=== PATIENT | female | born 1975 | race Caucasian/White ===

== ENCOUNTER 2018-12-28 09:58 | Emergency (ER) | payer SELFPAY ==
[2018-12-28 10:48] LABS: Basophils % 0.6 % (0-1.3); Hematocrit 32.2 % (36.0-45.0); Lymphocytes % 35.6 % (15.3-44.8); MPV 8.6 fL (7.6-11.3); RBC Red Blood Cell Count 3.88 M/uL (3.86-4.86)
[2018-12-28 11:00] LABS: BUN Blood Urea Nitrogen 13 mg/dL (7-18); Bicarbonate 27 mmol/L (21-32); Glucose Level 139 mg/dL (74-106); Potassium 3.7 mmol/L (3.5-5.1); Sodium Level 141 mmol/L (136-145)
--- NOTE | 2018-12-28 12:53 | ER ---
Nurse's Notes [facility] Name: Telma Sinclair Age: 43 yrs Sex: Female : 1975 Arrival Date: 12/28/2018 Time: 10:01 Bed 5 Private MD: Diagnosis: Abnormal uterine and vaginal bleeding, unspecified Presentation: 12/28 10:27 Presenting complaint: Patient states: Period started Oct 13, 2018, heavy bleeding with jl7 large clots. Transition of care: patient was not received from another setting of care. Onset of symptoms was October 13, 2018. Risk Assessment: Do you want to hurt yourself or someone else? Patient reports no desire to harm self or others. Initial Sepsis Screen: Does the patient meet any 2 criteria? No. Patient's initial sepsis screen is negative. Does the patient have a suspected source of infection? No. Patient's initial sepsis screen is negative. Care prior to arrival: None. 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 - Social history:: Smoking status: Patient/guardian denies using tobacco. - Ebola Screening: : No symptoms or risks identified at this time. Vital Signs: 10:28 BP 146 / 87; Pulse 104; Resp 18 S; Temp 98.7(O); Pulse Ox 100% on R/A; Pain 3/10; jl7 11:49 BP 116 / 70; Pulse 73; Resp 16 S; Pulse Ox 100% on R/A; jl7 ED Course: 10:01 Patient arrived in ED. mr 10:12 Familia Donato NP is PHCP. pm1 10:12 Moy John MD is Attending Physician. pm1 10:13 Ele Mcmillan RN is Primary Nurse. jl7 10:15 Arm band placed on. sv 10:15 Patient has correct armband on for positive identification. sv 10:27 Triage completed. jl7 10:30 Initial lab(s) drawn, by me, sent to lab. Inserted saline lock: 22 gauge in right jl7 forearm, using aseptic technique. Blood collected. 11:49 Initial lab(s) drawn, by me, sent to lab. jl7 12:52 Maddie Larson MD is Referral Physician. pm1 13:42 No provider procedures requiring assistance completed. IV discontinued, intact. jl7 Administered Medications: No medications were administered Outcome: 12:52 Discharge ordered by . pm1 13:42 Discharged to home ambulatory. jl7 13:42 Condition: stable 13:42 Discharge instructions given to patient, Instructed on discharge instructions, follow up and referral plans. Demonstrated understanding of instructions, follow-up care. 13:44 Patient left the ED. jl7 Signatures: Dalia Canela, Shakira Waldron RN, Patrick, FABRIC COATING SUPERVISOR FABRIC COATING SUPERVISOR pm1 Ele Mcmillan RN RN jl7
--- NOTE | 2018-12-28 12:53 | EDPHYS ---
Physician Documentation [facility] Name: Telma Sinclair Age: 43 yrs Sex: Female : 1975 Arrival Date: 12/28/2018 Time: 10:01 Bed 5 Private MD: ED Physician Moy John HPI: 12/28 11:09 This 43 yrs old Female presents to ER via Ambulatory with complaints of pm1 Vaginal Bleeding. 11:09 The patient presents with vaginal bleeding that is heavy, reports using 1 pads or pm1 tampons per day. Onset: The symptoms/episode began/occurred Ongoing for multiple years but worse since October of this year. Has seen Dr. Larson for this last year in Dec/Jan and was recommended hysterectomy. Patient did not want to get a hysterectomy at that time so she was given Depo-Provera monthly shots. She felt that the shots made the bleeding worse so she stopped getting them. Last took a Depo-provera shot in May 2018. Bleeding possibly due to fibroids. Associated signs and symptoms: Pertinent negatives: dysuria, fever, Abdominal pain, shortness of breath, chest pain, dizziness. Severity of symptoms: in the emergency department the symptoms are actually worse. The patient has experienced similar episodes in the past, chronically. 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 - Social history:: Smoking status: Patient/guardian denies using tobacco. - Ebola Screening: : No symptoms or risks identified at this time. ROS: 11:09 Positive for vaginal bleeding, Negative for urinary symptoms, flank pain, burning pm1 with urination, vaginal discharge. 11:09 Constitutional: Negative for fever, chills, and weight loss, Cardiovascular: Negative for chest pain, palpitations, and edema, Respiratory: Negative for shortness of breath, cough, wheezing, and pleuritic chest pain, Abdomen/GI: Negative for abdominal pain, nausea, vomiting, diarrhea, and constipation, Back: Negative for injury and pain, MS/Extremity: Negative for injury and deformity, Skin: Negative for injury, rash, and discoloration, Neuro: Negative for headache, weakness, numbness, tingling, and seizure. 11:09 All other systems are negative. Exam: 11:09 Constitutional: This is a well developed, well nourished patient who is awake, alert, pm1 and in no acute distress. Head/Face: Normocephalic, atraumatic. Eyes: Pupils equal round and reactive to light, extra-ocular motions intact. Lids and lashes normal. Conjunctiva and sclera are non-icteric and not injected. Cornea within normal limits. Periorbital areas with no swelling, redness, or edema. Chest/axilla: Normal chest wall appearance and motion. Nontender with no deformity. No lesions are appreciated. Cardiovascular: Regular rate and rhythm with a normal S1 and S2. No gallops, murmurs, or rubs. Normal PMI, no JVD. No pulse deficits. Respiratory: Lungs have equal breath sounds bilaterally, clear to auscultation and percussion. No rales, rhonchi or wheezes noted. No increased work of breathing, no retractions or nasal flaring. Abdomen/GI: Soft, non-tender, with normal bowel sounds. No distension or tympany. No guarding or rebound. No evidence of tenderness throughout. Back: No spinal tenderness. No costovertebral tenderness. Full range of motion. Skin: Warm, dry with normal turgor. Normal color with no rashes, no lesions, and no evidence of cellulitis. MS/ Extremity: Pulses equal, no cyanosis. Neurovascular intact. Full, normal range of motion. 11:09 Neuro: Orientation: is normal, Motor: is normal, moves all fours. Vital Signs: 10:28 BP 146 / 87; Pulse 104; Resp 18 S; Temp 98.7(O); Pulse Ox 100% on R/A; Pain 3/10; jl7 11:49 BP 116 / 70; Pulse 73; Resp 16 S; Pulse Ox 100% on R/A; jl7 MDM: 10:12 Patient medically screened. pm1 11:08 Data reviewed: vital signs. Data interpreted: Pulse oximetry: on room air is 100 %. pm1 Interpretation: normal. 11:21 ED course: Pending urine sample. Patient does not have any dysuria. Patient reports pm1 unable to provide urine sample at the moment, therefore I will order serum . 12:52 Counseling: I had a detailed discussion with the patient and/or guardian regarding: the pm1 historical points, exam findings, and any diagnostic results supporting the discharge/admit diagnosis, lab results, the need for outpatient follow up, for definitive care, an OB/Gyne specialist, to return to the emergency department if symptoms worsen or persist or if there are any questions or concerns that arise at home. 12/28 10:25 Order name: Basic Metabolic Panel; Complete Time: 11:04 pm1 12/28 10:25 Order name: CBC with Diff; Complete Time: 10:51 pm1 12/28 10:25 Order name: IV Saline Lock; Complete Time: 11:44 pm1 12/28 11:20 Order name: Test, Serum; Complete Time: 12:51 pm1 12/28 10:25 Order name: Labs collected and sent; Complete Time: 11:44 pm1 Administered Medications: No medications were administered Disposition: 16:30 Co-signature as Attending Physician, Moy John MD. rn Disposition: 12/28/18 12:52 Discharged to Home. Impression: Abnormal uterine and vaginal bleeding, unspecified. - Condition is Stable. - Discharge Instructions: Abnormal Uterine Bleeding. - Medication Reconciliation Form, Thank You Letter, Antibiotic Education, Prescription Opioid Use form. - Follow up: Emergency Department; When: As needed; Reason: Worsening of condition. Follow up: Private Physician; When: 2 - 3 days; Reason: Recheck today's complaints, Continuance of care, Re-evaluation by your physician. Follow up: Maddie Larson; When: 2 - 3 days; Reason: Recheck today's complaints, Continuance of care, Re-evaluation by your physician. - Problem is new. - Symptoms have improved. Signatures: Dispatcher [employer] EDMS Moy John MD MD rn Marinas, Patrick, HARESH PROTECTION SPECIALIST pm1 Ele Mcmillan RN RN jl7 Corrections: (The following items were deleted from the chart) 13:44 12:52 12/28/2018 12:52 Discharged to Home. Impression: Abnormal uterine and vaginal jl7 bleeding, unspecified. Condition is Stable. Forms are Medication Reconciliation Form, Thank You Letter, Antibiotic Education, Prescription Opioid Use. Follow up: Emergency Department; When: As needed; Reason: Worsening of condition. Follow up: Private Physician; When: 2 - 3 days; Reason: Recheck today's complaints, Continuance of care, Re-evaluation by your physician. Follow up: Maddie Larson; When: 2 - 3 days; Reason: Recheck today's complaints, Continuance of care, Re-evaluation by your physician. Problem is new. Symptoms have improved. pm1
[2018-12-28 14:02] VITALS: TEMP 98.7; O2SAT 100
[2018-12-28 14:03] VITALS: BP 116/70
== END 2018-12-28 13:44 | disposition home or self-care (01) ==
LOC: ER 09:58
DX: N93.9 Abnormal uterine and vaginal bleeding, unspecified (principal)
CPT/HCPCS: 36415; 80048; 84703; 85025; 99283

== ENCOUNTER 2019-08-19 08:13 | Emergency (ER) | payer SELFPAY ==
[2019-08-19] MEDS ORDERED: ONDANSETRON 4 MG/2 ML VIAL ONE (08:42)
[2019-08-19] MEDS ORDERED: NA CHLORIDE 0.9% 1,000 ML ONE (08:42)
[2019-08-19 08:57] LABS: Absolute Lymphocytes (CBC) 2.3 K/uL (0.7-4.9); Basophils % 0.5 % (0-1.3); Hematocrit 37.7 % (36.0-45.0); Lymphocytes % 35.9 % (15.3-44.8); MPV 8.9 fL (7.6-11.3); RBC Red Blood Cell Count 4.51 M/uL (3.86-4.86)
[2019-08-19 09:09] LABS: Potassium 4.1 mmol/L (3.5-5.1)
--- NOTE | 2019-08-19 09:25 | RAD REPORT ---
EXAM DESCRIPTION: [place] [facility] (2 Views)08/19/2019 9:19 am CLINICAL HISTORY: Cough COMPARISON: None FINDINGS: The lungs appear clear of acute infiltrate. The heart is normal size IMPRESSION: No acute abnormalities displayed
[2019-08-19 09:46] LABS: Urine Blood 1+ (NEG); Urine Glucose NEGATIVE (NEG); Urine Protein 1+ (NEG); Urine pH 5.5 (5.0-7.0)
--- NOTE | 2019-08-19 10:08 | EDPHYS ---
Physician Documentation [facility] Name: Telma Sinclair Age: 44 yrs Sex: Female : 1975 Arrival Date: 08/19/2019 Time: 08:16 Bed 6 Private MD: ED Physician Bhavna Mahoney HPI: 08/18 10:06 This 44 yrs old Female presents to ER via Ambulatory with complaints of kb Fever, Weakness. 10:07 The patient or guardian reports cough, that is intermittent, described as mild, with no kb sputum, flu symptoms, low-grade fever, myalgias. Onset: The symptoms/episode began/occurred 1 week(s) ago. Severity of symptoms: At their worst the symptoms were moderate, in the emergency department the symptoms are unchanged. Modifying factors: The symptoms are alleviated by nothing, the symptoms are aggravated by nothing. Associated signs and symptoms: Pertinent positives: fever, nausea, sore throat, vomiting, Pertinent negatives: chest pain, diarrhea, ear ache, rhinorrhea. The patient has not experienced similar symptoms in the past. The patient has not recently seen a physician. Pt reports low grade fever, n/v, decreased appetite, dry cough and scratchy throat that started 7 days ago. Denies sick contacts or travel. 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 - Social history:: Smoking status: Patient reports the use of cigarette tobacco products, 4 cigarettes/day. ROS: 10:06 Neck: Negative for injury, pain, and swelling, Cardiovascular: Negative for chest pain, kb palpitations, and edema, Back: Negative for injury and pain, MS/Extremity: Negative for injury and deformity, Skin: Negative for injury, rash, and discoloration, Neuro: Negative for headache, weakness, numbness, tingling, and seizure. 10:06 Constitutional: Positive for body aches, chills, fatigue, fever, malaise. 10:06 ENT: Positive for sore throat. 10:06 Respiratory: Positive for cough, Negative for dyspnea on exertion, hemoptysis, orthopnea, pleurisy, shortness of breath, sputum production, wheezing. 10:06 Abdomen/GI: Positive for nausea and vomiting, Negative for abdominal pain, diarrhea, constipation. Exam: 10:07 Constitutional: This is a well developed, well nourished patient who is awake, alert, kb and in no acute distress. Head/Face: Normocephalic, atraumatic. ENT: Nares patent. No nasal discharge, no septal abnormalities noted. Tympanic membranes are normal and external auditory canals are clear. Oropharynx with no redness, swelling, or masses, exudates, or evidence of obstruction, uvula midline. Mucous membranes moist. Neck: Trachea midline, no thyromegaly or masses palpated, and no cervical lymphadenopathy. Supple, full range of motion without nuchal rigidity, or vertebral point tenderness. No Meningismus. Chest/axilla: Normal chest wall appearance and motion. Nontender with no deformity. No lesions are appreciated. Cardiovascular: Regular rate and rhythm with a normal S1 and S2. No gallops, murmurs, or rubs. Normal PMI, no JVD. No pulse deficits. Respiratory: Lungs have equal breath sounds bilaterally, clear to auscultation and percussion. No rales, rhonchi or wheezes noted. No increased work of breathing, no retractions or nasal flaring. Abdomen/GI: Soft, non-tender, with normal bowel sounds. No distension or tympany. No guarding or rebound. No evidence of tenderness throughout. Skin: Warm, dry with normal turgor. Normal color with no rashes, no lesions, and no evidence of cellulitis. MS/ Extremity: Pulses equal, no cyanosis. Neurovascular intact. Full, normal range of motion. Neuro: Awake and alert, GCS 15, oriented to person, place, time, and situation. Cranial nerves II-XII grossly intact. Motor strength 5/5 in all extremities. Sensory grossly intact. Cerebellar exam normal. Normal gait. Vital Signs: 08:28 BP 112 / 72; Pulse 79; Resp 17; Temp 98; Pulse Ox 98% ; Weight 83.91 kg; Height 5 ft. 2 jl7 in. (157.48 cm); Pain 0/10; 08:28 Body Mass Index 33.84 (83.91 kg, 157.48 cm) jl7 MDM: 08:17 Patient medically screened. kb 10:05 Data reviewed: vital signs, nurses notes. Data interpreted: Pulse oximetry: on room air kb is 98 %. Interpretation: normal. Counseling: I had a detailed discussion with the patient and/or guardian regarding: the historical points, exam findings, and any diagnostic results supporting the discharge/admit diagnosis, lab results, radiology results, the need for outpatient follow up, a family practitioner, to return to the emergency department if symptoms worsen or persist or if there are any questions or concerns that arise at home. 08/18 08:27 Order name: Flu; Complete Time: 09:31 kb 08/18 08:27 Order name: Strep; Complete Time: 09:31 kb 08/18 08:27 Order name: CBC with Diff; Complete Time: 08:59 kb 08/18 08:27 Order name: Basic Metabolic Panel; Complete Time: 09:31 kb 08/18 08:27 Order name: [place] Screen Profile; Complete Time: 10:03 kb 08/18 08:44 Order name: Urine Dipstick--Ancillary (enter results); Complete Time: 10:03 eb 08/18 08:21 Order name: Urine Dipstick-Ancillary (obtain specimen); Complete Time: 08:48 kb 08/18 08:21 Order name: Chest Pa And Lat (2 Views) XRAY; Complete Time: 09:31 kb 08/18 08:27 Order name: IV Start; Complete Time: 08:48 kb 08/18 08:44 Order name: Urine --Ancillary (enter results); Complete Time: 10:03 eb 08/18 09:16 Order name: Throat Culture [facility] 08/18 10:05 Order name: COVID-19 kb Administered Medications: 08:44 Drug: NS 0.9% 1000 ml Route: IV; Rate: 1000 ml; Site: right antecubital; jl7 08:44 Drug: Zofran (Ondansetron) 4 mg Route: IVP; Site: right antecubital; jl7 Disposition: 18:50 Co-signature as Attending Physician, Bhavna Mahoney MD. ma2 Disposition: 08/19/19 10:08 Discharged to Home. Impression: Acute upper respiratory infection, unspecified. - Condition is Stable. - Discharge Instructions: Upper Respiratory Infection, Adult, [id number], Viral Respiratory Infection, [id number]. - Medication Reconciliation Form, Thank You Letter, Antibiotic Education, Prescription Opioid Use form. - Follow up: Emergency Department; When: As needed; Reason: Worsening of condition. Follow up: Private Physician; When: 2 - 3 days; Reason: Recheck today's complaints, Continuance of care, Re-evaluation by your physician. Signatures: Dispatcher [employer] EDIN Suzanne Ballard, SHUTTLE ROUTE VEHICLE OPERATOR-C SHUTTLE ROUTE VEHICLE OPERATOR-Sofy Orr, RN RN dm5 Ele Mcmillan RN RN jl7 Bhavna Mahoney MD MD ma2 Corrections: (The following items were deleted from the chart) 10:48 10:08 08/19/2019 10:08 Discharged to Home. Impression: Acute upper respiratory dm5 infection, unspecified. Condition is Stable. Forms are Medication Reconciliation Form, Thank You Letter, Antibiotic Education, Prescription Opioid Use. Follow up: Emergency Department; When: As needed; Reason: Worsening of condition. Follow up: Private Physician; When: 2 - 3 days; Reason: Recheck today's complaints, Continuance of care, Re-evaluation by your physician. kb
--- NOTE | 2019-08-19 10:08 | ER ---
Nurse's Notes [facility] Name: Telma Sinclair Age: 44 yrs Sex: Female : 1975 Arrival Date: 08/19/2019 Time: 08:16 Bed 6 Private MD: Diagnosis: Acute upper respiratory infection, unspecified Presentation: 08/18 08:28 Chief complaint: Patient states: Fever x 1 week, temp up to 100.7, dry cough started jl7 yesterday. Coronavirus screen: Proceed with normal triage. Patient reports a cough. Patient denies shortness of breath or difficulty breathing. Patient reports a measured and/or subjective temperature greater than 100.4F. Patient denies travel on a cruise ship or to a country the [facility] currently lists as an affected area. Patient denies contact with known and/or suspected case of COVID-19. Ebola Screen: No symptoms or risks identified at this time. Initial Sepsis Screen: Does the patient meet any 2 criteria? No. Patient's initial sepsis screen is negative. Does the patient have a suspected source of infection? No. Patient's initial sepsis screen is negative. Risk Assessment: Do you want to hurt yourself or someone else? Patient reports no desire to harm self or others. Onset of symptoms was August 12, 2019. Care prior to arrival: None. 08:28 Method Of Arrival: Ambulatory 7 08:28 Acuity: ELEAZAR 3 jl7 Triage Assessment: 08:28 General: Appears in no apparent distress. uncomfortable, Behavior is calm, cooperative, jl7 appropriate for age. Pain: Denies pain. EENT: Throat is clear. Neuro: Level of Consciousness is awake, alert, obeys commands, Oriented to person, place, time, situation. Cardiovascular: Patient's skin is warm and dry. Respiratory: Airway is patent Respiratory effort is even, unlabored, Respiratory pattern is regular, symmetrical. GI: Reports nausea, vomiting. : No signs and/or symptoms were reported regarding the genitourinary system. Derm: Skin is pink, warm \T\ dry. 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 - Social history:: Smoking status: Patient reports the use of cigarette tobacco products, 4 cigarettes/day. Assessment: 11:51 Reassessment: JUANCARLOS# [id number]. iw Vital Signs: 08:28 BP 112 / 72; Pulse 79; Resp 17; Temp 98; Pulse Ox 98% ; Weight 83.91 kg; Height 5 ft. 2 jl7 in. (157.48 cm); Pain 0/10; 08:28 Body Mass Index 33.84 (83.91 kg, 157.48 cm) jl7 ED Course: 08:16 Patient arrived in ED. as 08:16 Suz[facility] Ballard [facility]C [facility] kb 08:16 Bhavna Mahoney MD is Attending Physician. kb 08:22 Ele Mcmillan RN is Primary Nurse. jl7 08:24 Arm band placed on right wrist. jl7 08:29 Triage completed. jl7 08:47 Initial lab(s) drawn, by sc, sent to lab. Urine collected: clean catch specimen, clear, jl7 Flu and/or RSV swab sent to lab. Strep swab sent to lab. Inserted saline lock: 20 gauge in right antecubital area, using aseptic technique. Blood collected. 09:19 Chest Pa And Lat (2 Views) XRAY In Process Unspecified. EDMS 10:48 IV discontinued, intact, bleeding controlled, No redness/swelling at site. Pressure dm5 dressing applied. Administered Medications: 08:44 Drug: NS 0.9% 1000 ml Route: IV; Rate: 1000 ml; Site: right antecubital; jl7 08:44 Drug: Zofran (Ondansetron) 4 mg Route: IVP; Site: right antecubital; jl7 Outcome: 10:08 Discharge ordered by . kb 10:48 Discharged to home ambulatory. dm5 10:48 Condition: good 10:48 Discharge instructions given to patient, family, Instructed on discharge instructions, follow up and referral plans. Demonstrated understanding of instructions, follow-up care. 10:48 Patient left the ED. dm5 Addendum: 08/23/2019 08:52 Addendum: Other pt notified of negative COVID-19 swab results. Pt advised to remain in d m5 isolation until fever free for 72 hours without medication or at least 10 says from the time symptoms started and to return to the ED if symptoms worsen. Signatures: Dispatcher [employer] Suzanne Hernandez, [employer]-Sofy Orr, RN RN dm5 Keara Langley Irene, RN RN iw Ele Mcmillan RN RN jl7
[2019-08-19 11:08] VITALS: BP 112/72; TEMP 98; O2SAT 98
== END 2019-08-19 10:48 | disposition home or self-care (01) ==
LOC: ER 08:13
DX: J06.9 Acute upper respiratory infection, unspecified (principal); Z20.828 Contact with and (suspected) exposure to other viral communicable diseases; F17.210 Nicotine dependence, cigarettes, uncomplicated
CPT/HCPCS: 36415; 71046; 80048; 81003; 81025; 85025; 86308; 87070; 87081; 87804; 96374; 99284; J2405; J7030; U0001

== ENCOUNTER 2020-03-07 09:17 | Emergency (ER) | payer SELFPAY ==
--- NOTE | 2020-03-07 12:25 | EDPHYS ---
Physician Documentation [facility] Name: Telma Sinclair Age: 44 yrs Sex: Female : 1975 Arrival Date: 03/07/2020 Time: 09:19 Bed 5 Private MD: ED Physician El Chin HPI: 03/07 09:56 This 44 yrs old Female presents to ER via Ambulatory with complaints of kdr Cough, Runny Nose, Chest Pain. 09:56 The patient or guardian reports cough, that is intermittent, described as mild, with no kdr sputum, difficulty breathing, flu symptoms, arthralgias, myalgias, no appetite. Onset: The symptoms/episode began/occurred last night. Severity of symptoms: At their worst the symptoms were mild, in the emergency department the symptoms are unchanged. Modifying factors: The symptoms are alleviated by nothing, the symptoms are aggravated by nothing. Associated signs and symptoms: Pertinent positives: chest pain, with cough, with breathing, nausea, sore throat, Pertinent negatives: fever, rhinorrhea. The patient has not experienced similar symptoms in the past. The patient has not recently seen a physician. Historical: - Allergies: 09:46 No Known Allergies; bp - Home Meds: 09:46 None [Active]; bp - PMHx: 09:46 uterine fibroids; bp - PSHx: 09:46 None; bp - Immunization history:: Adult Immunizations up to date. - Social history:: Smoking status: Patient reports the use of cigarette tobacco products, unknown amount. ROS: 09:56 Constitutional: Negative for fever, chills, and weight loss, Eyes: Negative for injury, kdr pain, redness, and discharge, Neck: Negative for injury, pain, and swelling, Abdomen/GI: Negative for abdominal pain, nausea, vomiting, diarrhea, and constipation, Back: Negative for injury and pain, : Negative for injury, bleeding, discharge, and swelling, MS/Extremity: Negative for injury and deformity, Skin: Negative for injury, rash, and discoloration, Neuro: Negative for headache, weakness, numbness, tingling, and seizure activity. Psych: Negative for depression, anxiety, suicide ideation, homicidal ideation, and hallucinations, Allergy/Immunology: Negative for hives, rash, and allergies, Endocrine: Negative for neck swelling, polydipsia, polyuria, polyphagia, and marked weight changes, Hematologic/Lymphatic: Negative for swollen nodes, abnormal bleeding, and unusual bruising. 09:56 Cardiovascular: Positive for chest pain, with cough, Negative for edema, orthopnea, palpitations, paroxysmal nocturnal dyspnea. 09:56 Respiratory: Positive for cough, "sounds productive", Negative for dyspnea on exertion, hemoptysis, orthopnea, pleurisy, shortness of breath, sputum production, wheezing. Exam: 09:56 Constitutional: This is a well developed, well nourished patient who is awake, alert, kdr and in no acute distress. Head/Face: Normocephalic, atraumatic. Eyes: Pupils equal round and reactive to light, extra-ocular motions intact. Lids and lashes normal. Conjunctiva and sclera are non-icteric and not injected. Cornea within normal limits. Periorbital areas with no swelling, redness, or edema. Neck: Trachea midline, no thyromegaly or masses palpated, and no cervical lymphadenopathy. Supple, full range of motion without nuchal rigidity, or vertebral point tenderness. No Meningismus. Chest/axilla: Normal chest wall appearance and motion. Nontender with no deformity. No lesions are appreciated. Cardiovascular: Regular rate and rhythm with a normal S1 and S2. No gallops, murmurs, or rubs. Normal PMI, no JVD. No pulse deficits. Respiratory: Lungs have equal breath sounds bilaterally, clear to auscultation and percussion. No rales, rhonchi or wheezes noted. No increased work of breathing, no retractions or nasal flaring. Abdomen/GI: Soft, non-tender, with normal bowel sounds. No distension or tympany. No guarding or rebound. No evidence of tenderness throughout. Back: No spinal tenderness. No costovertebral tenderness. Full range of motion. Skin: Warm, dry with normal turgor. Normal color with no rashes, no lesions, and no evidence of cellulitis. MS/ Extremity: Pulses equal, no cyanosis. Neurovascular intact. Full, normal range of motion. Neuro: Awake and alert, GCS 15, oriented to person, place, time, and situation. Cranial nerves II-XII grossly intact. Motor strength 5/5 in all extremities. Sensory grossly intact. Cerebellar exam normal. Normal gait. Psych: Awake, alert, with orientation to person, place and time. Behavior, mood, and affect are within normal limits. Vital Signs: 09:26 BP 133 / 86; Pulse 109; Resp 20; Temp 98.1(TE); Pulse Ox 98% on R/A; Weight 83.01 kg; em1 Height 5 ft. 2 in. (157.48 cm); Pain 6/10; 10:41 BP 97 / 86; Pulse 82; Resp 20; Pulse Ox 98% ; bp 11:30 BP 124 / 56; Pulse 78; Resp 18; Pulse Ox 98% ; bp 12:46 BP 118 / 89; Pulse 78; Resp 20; Temp 98; Pulse Ox 99% ; bp 09:26 Body Mass Index 33.47 (83.01 kg, 157.48 cm) em1 MDM: 09:56 Data reviewed: vital signs, nurses notes, lab test result(s), radiologic studies. kdr Counseling: I had a detailed discussion with the patient and/or guardian regarding: the historical points, exam findings, and any diagnostic results supporting the discharge/admit diagnosis, lab results, the need for outpatient follow up. 12:25 Patient medically screened. kdr 12:43 Special discussion: I discussed with the patient/guardian in detail that at this point kdr there is no indication for admission to the hospital. It is understood, however, that if the symptoms persist or worsen the patient needs to return immediately for re-evaluation. 03/07 09:52 Order name: COVID-19 kdr 03/07 09:52 Order name: Strep; Complete Time: 12:24 kdr 03/07 10:07 Order name: Flu kdr 03/07 12:24 Order name: Throat Culture EDMS Administered Medications: No medications were administered Disposition: 03/07/20 12:25 Discharged to Home. Impression: Cough, Acute upper respiratory infection, unspecified, Viral infection, unspecified. - Condition is Stable. - Discharge Instructions: Upper Respiratory Infection, Adult, [id number], Cough, Adult, [id number]. - Prescriptions for Promethazine VC 6.25- 5 mg/5 mL Oral syrup - take 5 milliliter by ORAL route every 4 hours as needed; 200 milliliter. Tessalon Perles 100 mg Oral Capsule - take 1 capsule by ORAL route every 8 hours As needed; 15 capsule. prednisone 10 mg Oral tablet - take 1 tablet by ORAL route 2 times per day; 10 tablet. Prednisone 20 mg Oral Tablet - take 1 tablet by ORAL route 2 times per day for 5 days; 10 tablet. - Medication Reconciliation Form, Thank You Letter form. - Follow up: Private Physician; When: 2 - 3 days; Reason: If symptoms return, Further diagnostic work-up, Recheck today's complaints, Continuance of care, Re-evaluation by your physician. - Problem is new. - Symptoms are unchanged. Signatures: Dispatcher [employer] EDSC El Chin MD MD kdr Peltier, Brian, RN RN bp Corrections: (The following items were deleted from the chart) 12:48 12:25 03/07/2020 12:25 Discharged to Home. Impression: Cough; Acute upper respiratory bp infection, unspecified; Viral infection, unspecified. Condition is Stable. Forms are Medication Reconciliation Form, Thank You Letter, Antibiotic Education, Prescription Opioid Use. Follow up: Private Physician; When: 2 - 3 days; Reason: If symptoms return, Further diagnostic work-up, Recheck today's complaints, Continuance of care, Re-evaluation by your physician. Problem is new. Symptoms are unchanged. kdr
--- NOTE | 2020-03-07 12:25 | ER ---
Nurse's Notes [facility] Name: Telma Sinclair Age: 44 yrs Sex: Female : 1975 Arrival Date: 03/07/2020 Time: 09:19 Bed 5 Private MD: Diagnosis: Cough;Acute upper respiratory infection, unspecified;Viral infection, unspecified Presentation: 03/07 09:30 Chief complaint: Patient states: COUGH, COLD, CHEST CONGESTION, HEADACHE; START Y/D bp MORNING. Coronavirus screen: chills, congestion, cough unrelated to allergies, fatigue, headache, muscle pain, Client presents with at least one sign or symptom that may indicate coronavirus-19. Standard/surgical mask placed on the client. Provider contacted for isolation considerations. Ebola Screen: No symptoms or risks identified at this time. Initial Sepsis Screen: Does the patient meet any 2 criteria? HR > 90 bpm. No. Patient's initial sepsis screen is negative. Does the patient have a suspected source of infection? Yes: Productive cough/pneumonia. Risk Assessment: Do you want to hurt yourself or someone else? Patient reports no desire to harm self or others. Onset of symptoms was March 06, 2020 at 06:00. 09:30 Method Of Arrival: Ambulatory bp 09:30 Acuity: ELEAZAR 3 bp Triage Assessment: 09:46 General: Appears in no apparent distress. uncomfortable, ill, Behavior is calm, bp cooperative, appropriate for age. Pain: Complains of pain in GENERALIZED ACHE. EENT: Reports nasal congestion. Neuro: No deficits noted. Cardiovascular: Rhythm is sinus rhythm. Respiratory: Reports cough that is. GI: No signs and/or symptoms were reported involving the gastrointestinal system. : No signs and/or symptoms were reported regarding the genitourinary system. Derm: No deficits noted. Musculoskeletal: No deficits noted. Historical: - Allergies: 09:46 No Known Allergies; bp - Home Meds: 09:46 None [Active]; bp - PMHx: :46 uterine fibroids; bp - PSHx: 09:46 None; bp - Immunization history:: Adult Immunizations up to date. - Social history:: Smoking status: Patient reports the use of cigarette tobacco products, unknown amount. Screenin:30 Abuse screen: Denies threats or abuse. Denies injuries from another. Nutritional bp screening: No deficits noted. Tuberculosis screening: No symptoms or risk factors identified. Fall Risk None identified. Assessment: 09:30 General: SEE TRIAGE NOTE. bp 11:30 Reassessment: No changes from previously documented assessment. Patient and/or family bp updated on plan of care and expected duration. Pain level reassessed. Patient is alert, oriented x 3, equal unlabored respirations, skin warm/dry/pink. RESULTS PENDING FOR DISPO. 12:46 Reassessment: PT D/C HOME AMBULATORY, DX WITH ACUTE URI. bp Vital Signs: 09:26 BP 133 / 86; Pulse 109; Resp 20; Temp 98.1(TE); Pulse Ox 98% on R/A; Weight 83.01 kg; em1 Height 5 ft. 2 in. (157.48 cm); Pain 6/10; 10:41 BP 97 / 86; Pulse 82; Resp 20; Pulse Ox 98% ; bp 11:30 BP 124 / 56; Pulse 78; Resp 18; Pulse Ox 98% ; bp 12:46 BP 118 / 89; Pulse 78; Resp 20; Temp 98; Pulse Ox 99% ; bp 09:26 Body Mass Index 33.47 (83.01 kg, 157.48 cm) em1 ED Course: 09:19 Patient arrived in ED. ag5 09:28 Patient has correct armband on for positive identification. Placed in gown. Bed in low mh5 position. Call light in reach. Side rails up X 1. Warm blanket given. director of government sales on. Pulse ox on. NIBP on. 09:32 Jerman Beauchamp, YUKI is Primary Nurse. bp 09:36 El Chin MD is Attending Physician. kdr 09:45 Triage completed. bp 10:15 Flu Sent. bp 10:15 Strep Sent. bp 10:15 COVID-19 Sent. bp 12:47 No provider procedures requiring assistance completed. Patient did not have IV access bp during this emergency room visit. Patient maintains SpO2 saturation greater than 95% on room air. Administered Medications: No medications were administered Outcome: 12:25 Discharge ordered by . kdr 12:47 Discharged to home ambulatory. bp 12:47 Condition: stable 12:47 Discharge instructions given to patient, Instructed on discharge instructions, follow up and referral plans. medication usage, Demonstrated understanding of instructions, follow-up care, medications, Prescriptions given X 4. 12:48 Patient left the ED. bp Addendum: 03/08/2020 17:18 Addendum: COVID-19 Result: Negative result given to RN to notify pt. Notified pt of i w negative COVID 19 swab results. Pt advised that even with a negative test result they should remain in isolation until symptom free for 3 days without medication. Pt also advised to return to the ED for worsening symptoms. Signatures: El Chin MD MD [facility] Shea Wilhelm RN RN Luis Langley Tabitha Trejo [facility] Jerman Beauchamp RN RN bp Gaskin, Ajare 5
[2020-03-07 12:56] VITALS: BP 118/89; TEMP 98; O2SAT 99
== END 2020-03-07 12:48 | disposition home or self-care (01) ==
LOC: ER 09:17
DX: J06.9 Acute upper respiratory infection, unspecified (principal); B34.9 Viral infection, unspecified; Z20.828 Contact with and (suspected) exposure to other viral communicable diseases; Z72.0 Tobacco use
CPT/HCPCS: 87070; 87081; 87804; 99284; U0002

== ENCOUNTER 2020-05-12 09:44 | Emergency (ER) | payer SELFPAY ==
--- NOTE | 2020-05-12 11:14 | ER ---
Nurse's Notes [facility] Name: Telma Sinclair Age: 45 yrs Sex: Female : 1975 Arrival Date: 05/12/2020 Time: 09:46 Bed 6 Private MD: Diagnosis: Acute pharyngitis;Otalgia, right ear Presentation: 05/12 09:56 Chief complaint: Patient states: "I am getting over COVID, got my first negative test jd3 here recently/end of April, but here since about Thursday I have been having some throat and ear pain.". Coronavirus screen: At this time, the client does not indicate any symptoms associated with coronavirus-19. Ebola Screen: Patient negative for fever greater than or equal to 101.5 degrees Fahrenheit, and additional compatible Ebola Virus Disease symptoms. Initial Sepsis Screen: Does the patient meet any 2 criteria? No. Patient's initial sepsis screen is negative. Does the patient have a suspected source of infection? No. Patient's initial sepsis screen is negative. Risk Assessment: Do you want to hurt yourself or someone else? Patient reports no desire to harm self or others. Onset of symptoms was May 08, 2020. 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 - Social history:: Smoking status: Patient denies any tobacco usage or history of. Screenin:01 Abuse screen: Denies threats or abuse. Nutritional screening: No deficits noted. jd3 Tuberculosis screening: No symptoms or risk factors identified. Fall Risk Ambulatory Aid- None/Bed Rest/Nurse Assist (0 pts). Gait- Normal/Bed Rest/Wheelchair (0 pts) Mental Status- Oriented to own ability (0 pts). Total Isaac Fall Scale indicates No Risk (0-24 pts). Assessment: 09:59 General: Appears in no apparent distress. comfortable, Behavior is calm, cooperative, jd3 appropriate for age. Pain: Complains of pain in right ear and throat Quality of pain is described as aching. Neuro: Level of Consciousness is awake, alert, obeys commands, Oriented to person, place, time, situation. Cardiovascular: Denies chest pain, Capillary refill < 3 seconds Patient's skin is warm and dry. Respiratory: Airway is patent Respiratory effort is even, unlabored, Respiratory pattern is regular, symmetrical, Denies cough, shortness of breath. GI: No signs and/or symptoms were reported involving the gastrointestinal system. : No signs and/or symptoms were reported regarding the genitourinary system. EENT: Tympanic membrane reddened on right ear Throat is reddened. Derm: Skin is intact, Skin is dry, Skin is normal, Skin temperature is warm. Musculoskeletal: Circulation, motion, and sensation intact. Range of motion: intact in all extremities. 10:46 Reassessment: No changes from previously documented assessment. Patient and/or family bp updated on plan of care and expected duration. Pain level reassessed. Patient is alert, oriented x 3, equal unlabored respirations, skin warm/dry/pink. ALL CURRENT ORDERS COMPLETED. 11:19 Reassessment: Patient appears in no apparent distress at this time. Patient and/or jd3 family updated on plan of care and expected duration. Pain level reassessed. Patient is alert, oriented x 3, equal unlabored respirations, skin warm/dry/pink. reported understanding of discharge instructions, even and steady gait upon discharge. Vital Signs: 09:58 BP 115 / 68; Pulse 83; Resp 16 S; Temp 98.9(O); Pulse Ox 98% on R/A; Weight 81.65 kg jd3 (R); Height 5 ft. 2 in. (157.48 cm) (R); Pain 8/10; 10:46 BP 119 / 107; Pulse 64; Resp 16; Temp 98.9; Pulse Ox 98% ; bp 09:58 Body Mass Index 32.92 (81.65 kg, 157.48 cm) jd3 ED Course: 09:46 Patient arrived in ED. as 09:48 Familia Donato NP is PHCP. pm1 09:48 Abhishek Petty MD is Attending Physician. pm1 09:49 Jerman Beauchamp, YUKI is Primary Nurse. bp 09:58 Triage completed. jd3 09:59 Arm band placed on. jd3 10:01 Patient has correct armband on for positive identification. Bed in low position. Call jronal light in reach. Side rails up X 1. Pulse ox on. NIBP on. 10:05 Primary Nurse role handed off by Jerman Beauchamp, RN jd3 10:05 Taurus Feliz, RN is Primary Nurse. jd3 11:19 No provider procedures requiring assistance completed. Patient did not have IV access jd3 during this emergency room visit. Administered Medications: No medications were administered Outcome: 11:13 Discharge ordered by MD. pm1 11:19 Discharged to home ambulatory. jd3 11:19 Condition: stable 11:19 Discharge instructions given to patient, Instructed on discharge instructions, follow up and referral plans. medication usage, Demonstrated understanding of instructions, follow-up care, medications, Prescriptions given X 1. 11:20 Patient left the ED. jd3 Signatures: Keara Langley Patrick, ELECTRICAL TROUBLESHOOTER ELECTRICAL TROUBLESHOOTER pm1 Taurus Feliz, RN RN j Jerman Beauchamp, YUKI RN bp Corrections: (The following items were deleted from the chart) 10:47 10:46 Reassessment: ALL CURRENT ORDERS COMPLETED bp bp
--- NOTE | 2020-05-12 11:14 | EDPHYS ---
Physician Documentation [facility] Name: Telma Sinclair Age: 45 yrs Sex: Female : 1975 Arrival Date: 05/12/2020 Time: 09:46 Bed 6 Private MD: MARGIE Physician Abhishek Petty HPI: 05/12 10:06 This 45 yrs old Female presents to ER via Ambulatory with complaints of Sore pm1 Throat, Ear Pain. 10:06 The patient presents with sore throat. The patient describes throat pain as raw, pm1 scratchy. Onset: The symptoms/episode began/occurred 3 day(s) ago. Severity of symptoms: in the emergency department the symptoms are unchanged. Modifying factors: the symptoms are aggravated by swallowing, Patient's oral intake status: good. Associated signs and symptoms: Pertinent positives: earache, Pertinent negatives chest pain, cough, fever, nausea, shortness of breath, vomiting. Patient diagnosed with covin in April. Patient has had 2 negative tests since then, she just received her second negative covid test today. 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 - Social history:: Smoking status: Patient denies any tobacco usage or history of. ROS: 10:06 Constitutional: Negative for fever, chills, and weight loss. pm1 10:06 Cardiovascular: Negative for chest pain, palpitations, and edema, Respiratory: Negative for shortness of breath, cough, wheezing, and pleuritic chest pain, Abdomen/GI: Negative for abdominal pain, nausea, vomiting, diarrhea, and constipation, MS/Extremity: Negative for injury and deformity, Skin: Negative for injury, rash, and discoloration. 10:06 Neuro: Negative for headache, weakness, numbness, tingling, and seizure. 10:06 ENT: Positive for ear pain, sore throat, Negative for drainage from ear(s), hearing loss, difficulty swallowing, difficulty handling secretions, hoarseness. Exam: 10:06 Constitutional: This is a well developed, well nourished patient who is awake, alert, pm1 and in no acute distress. Head/Face: Normocephalic, atraumatic. 10:06 Skin: Warm, dry with normal turgor. Normal color with no rashes, no lesions, and no evidence of cellulitis. MS/ Extremity: Pulses equal, no cyanosis. Neurovascular intact. Full, normal range of motion. 10:06 ENT: External ear(s): are unremarkable, Ear canal(s): are normal, TM's: bulging, on the right, Examination of the other ear shows no obvious abnormality, Posterior pharynx: Airway: no evidence of obstruction, Tonsils: bilaterally enlarged, with erythema, no exudate, no ulcerations, peritonsillar mass, is not appreciated, pooling of secretions, is not appreciated. 10:06 Neck: ROM/movement: is normal, is supple, Lymph nodes: lymphadenopathy is appreciated, anterior cervical nodes. 10:06 Cardiovascular: Exam negative for acute changes, Rate: normal, Rhythm: regular, Pulses: no pulse deficits are appreciated. 10:06 Respiratory: Exam negative for acute changes, respiratory distress, shortness of breath. 10:06 Neuro: Exam negative for acute changes, Orientation: is normal, Mentation: is normal, Motor: is normal, moves all fours. Vital Signs: 09:58 BP 115 / 68; Pulse 83; Resp 16 S; Temp 98.9(O); Pulse Ox 98% on R/A; Weight 81.65 kg jd3 (R); Height 5 ft. 2 in. (157.48 cm) (R); Pain 8/10; 10:46 BP 119 / 107; Pulse 64; Resp 16; Temp 98.9; Pulse Ox 98% ; bp 09:58 Body Mass Index 32.92 (81.65 kg, 157.48 cm) jd3 MDM: 09:55 Patient medically screened. jeffrey 10:06 ED course: Patient does not want covid testing because she has had two negative covid pm1 tests after having symptoms and testing positive on April 19. Patient just got a negative covid test result. 11:12 Data reviewed: vital signs. Data interpreted: Pulse oximetry: on room air is 98 %. pm1 Interpretation: normal. Counseling: I had a detailed discussion with the patient and/or guardian regarding: the historical points, exam findings, and any diagnostic results supporting the discharge/admit diagnosis, lab results, the need for outpatient follow up, to return to the emergency department if symptoms worsen or persist or if there are any questions or concerns that arise at home. 05/12 10:06 Order name: Flu pm1 05/12 10:06 Order name: Strep pm1 05/12 10:28 Order name: Group A Streptococcus Rapid Sc; Complete Time: 11:12 EDMS 05/12 10:53 Order name: Influenza Screen (A ; Complete Time: 11:12 EDMS Administered Medications: No medications were administered Disposition: 05/13 09:04 Co-signature as Attending Physician, Abhishek Petty MD I agree with the assessment and jeffrey plan of care. Disposition: 05/12/20 11:13 Discharged to Home. Impression: Acute pharyngitis, Otalgia, right ear. - Condition is Stable. - Discharge Instructions: Earache, Adult, Pharyngitis. - Prescriptions for Amoxicillin 500 mg Oral Capsule - take 1 capsule by ORAL route every 8 hours for 10 days; 30 tablet. - Medication Reconciliation Form, Thank You Letter, Antibiotic Education, Prescription Opioid Use form. - Follow up: Emergency Department; When: As needed; Reason: Worsening of condition. Follow up: Private Physician; When: 2 - 3 days; Reason: Recheck today's complaints, Continuance of care, Re-evaluation by your physician. - Problem is new. - Symptoms have improved. Signatures: Dispatcher [employer] Abhishek Mann MD MD cha Marinas, Patrick, DENTAL BILLER DENTAL BILLER pm1 Taurus Feliz RN RN jd3 Corrections: (The following items were deleted from the chart) 05/12 11:20 11:13 05/12/2020 11:13 Discharged to Home. Impression: Acute pharyngitis; Otalgia, jd3 right ear. Condition is Stable. Forms are Medication Reconciliation Form, Thank You Letter, Antibiotic Education, Prescription Opioid Use. Follow up: Emergency Department; When: As needed; Reason: Worsening of condition. Follow up: Private Physician; When: 2 - 3 days; Reason: Recheck today's complaints, Continuance of care, Re-evaluation by your physician. Problem is new. Symptoms have improved. pm1
[2020-05-12 11:33] VITALS: TEMP 98.9; O2SAT 98
[2020-05-12 11:34] VITALS: BP 119/107
== END 2020-05-12 11:20 | disposition home or self-care (01) ==
LOC: ER 09:44
DX: H92.01 Otalgia, right ear (principal)
CPT/HCPCS: 87070; 87081; 87804; 99283

== ENCOUNTER 2021-01-25 07:31 | Inpatient (IN) | payer SELFPAY ==
[2021-01-25 08:13] LABS: Protime INR 0.86
[2021-01-25 08:14] LABS: Absolute Lymphocytes (CBC) 2.4 K/uL (0.7-4.9); Basophils % 0.8 % (0-1.3); Hematocrit 35.1 % (36.0-45.0); Lymphocytes % 40.9 % (15.3-44.8); MPV 8.6 fL (7.6-11.3); RBC Red Blood Cell Count 4.52 M/uL (3.86-4.86)
[2021-01-25 08:34] LABS: ALT/SGPT 23 U/L (12-78); AST/SGOT 12 U/L (15-37); Albumin 3.4 g/dL (3.4-5.0); Alkaline Phosphatase 62 U/L (45-117); BUN Blood Urea Nitrogen 11 mg/dL (7-18); Bicarbonate 26 mmol/L (21-32); Bilirubin Direct < 0.1 mg/dL (0-0.2); Bilirubin Total 0.2 mg/dL (0.2-1.0); Glucose Level 96 mg/dL (74-106); NT PRO-BNP 103 pg/mL (<125); Potassium 3.9 mmol/L (3.5-5.1); Protein, Total 7.4 g/dL (6.4-8.2); Sodium Level 140 mmol/L (136-145); Troponin (Emerg Dept Use Only) < 0.02 ng/mL (0.0-0.045)
--- NOTE | 2021-01-25 08:50 | RAD REPORT ---
EXAM DESCRIPTION: RAD - Chest Single View - 01/25/2021 8:24 am CLINICAL HISTORY: CHEST PAIN COMPARISON: <Comparisons> FINDINGS: Lines: None. Lungs: No evidence of edema or pneumonia. Pleural: No significant pleural effusions or pneumothorax. Cardiac: The heart size is within normal limits. Bones: No acute fractures. Other: IMPRESSION: No acute cardiopulmonary disease.
[2021-01-25] MEDS ORDERED: ASPIRIN 81 MG CHEWABLE TABLET ONE (10:00)
[2021-01-25] MEDS ORDERED: MORPHINE 4 MG/ML SYR ONE (10:01)
[2021-01-25] MEDS ORDERED: ONDANSETRON 4 MG/2 ML VIAL ONE (10:01)
--- NOTE | 2021-01-25 10:07 | ER ---
Nurse's Notes [facility] Name: Telma Sinclair Age: 45 yrs Sex: Female : 1975 Arrival Date: 01/25/2021 Time: 07:33 Bed 15 Private MD: Diagnosis: Chest pain, unspecified Presentation: 01/25 07:39 Chief complaint: Patient states: Constant CP that began 2 weeks ago. Pt reports that bb the pain has changed to burning and now is crossing to the L side of her chest and now c/o SOB. Coronavirus screen: Client denies travel out of the [place] in the last 14 days. Ebola Screen: Patient denies exposure to infectious person. Patient denies travel to an Ebola-affected area in the 21 days before illness onset. Initial Sepsis Screen: Does the patient meet any 2 criteria? No. Patient's initial sepsis screen is negative. Does the patient have a suspected source of infection? No. Patient's initial sepsis screen is negative. Risk Assessment: Do you want to hurt yourself or someone else? Patient reports no desire to harm self or others. Onset of symptoms was January 11, 2021. 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 - Social history:: Smoking status: Patient/guardian denies using tobacco, but has a distant history of tobacco abuse. Screenin:03 Abuse screen: Denies threats or abuse. Denies injuries from another. Nutritional jl7 screening: No deficits noted. Tuberculosis screening: No symptoms or risk factors identified. Fall Risk IV access (20 points). Total Isaac Fall Scale indicates No Risk (0-24 pts). Assessment: 08:00 General: Appears in no apparent distress. uncomfortable, Behavior is calm, cooperative, jl7 appropriate for age. Pain: Complains of pain in anterior aspect of right upper chest Pain radiates to anterior aspect of left upper chest and left arm Pain currently is 9 out of 10 on a pain scale. Quality of pain is described as sharp, shooting, Pain began x 2 weeks Is continuous. Neuro: Level of Consciousness is awake, alert, obeys commands, Oriented to person, place, time, situation. Cardiovascular: Patient's skin is warm and dry. Respiratory: Reports shortness of breath Airway is patent Respiratory effort is even, unlabored, Respiratory pattern is regular, symmetrical. Derm: Skin is pink, warm \\T\\ dry. 09:00 Reassessment: Patient appears in no apparent distress at this time. No changes from jl7 previously documented assessment. Patient and/or family updated on plan of care and expected duration. Pain level reassessed. Patient is alert, oriented x 3, equal unlabored respirations, skin warm/dry/pink. 11:30 Reassessment: Pt sitting in bed, family at bedside, respirations even and unlabored, no jl7 signs of distress noted. 13:50 Reassessment: Echo being done at bedside, pt will be transported to [facility] after jl7 completion. Vital Signs: 07:38 BP 179 / 89; Pulse 71; Resp 15; Temp 97.8(TE); Pulse Ox 100% on R/A; Weight 83.91 kg; bb Height 5 ft. 2 in. (157.48 cm); Pain 9/10; 08:48 BP 148 / 80; Pulse 64; Resp 15; Pulse Ox 100% ; jl7 09:56 BP 133 / 83; Pulse 89; Resp 15; Pulse Ox 98% ; Pain 9/10; jl7 13:00 BP 132 / 70; Pulse 61; Resp 15; Pulse Ox 98% ; jl7 07:38 Body Mass Index 33.84 (83.91 kg, 157.48 cm) bb ED Course: 07:33 Patient arrived in ED. ds1 07:39 Arm band placed on right wrist. bb 07:40 Triage completed. bb 07:42 [facility] Ballard [facility]C [facility] kb 07:42 El Chin MD is Attending Physician. kb 07:43 Ele Mcmillan RN is Primary Nurse. jl7 08:00 EKG done, by ED staff, reviewed by Suzanne MOYER. jl7 08:03 Patient has correct armband on for positive identification. Placed in gown. Bed in low jl7 position. Call light in reach. Side rails up X 1. head lineman on. Pulse ox on. NIBP on. Warm blanket given. 08:03 Initial lab(s) drawn, by me, sent to lab. Inserted saline lock: 20 gauge in right jl7 antecubital area, using aseptic technique. Blood collected. Patient maintains SpO2 saturation greater than 95% on room air. 08:24 XRAY Chest (1 view) In Process Unspecified. EDMS 09:55 Repeat lab(s) drawn. by me, sent to lab. EKG done, by ED staff, reviewed by Suzanne MOYER. 10:06 Bhavna Pierce MD is Hospitalizing Provider. kb 10:15 COVID swab sent to lab. jl7 10:38 COVID-19 SARS RT PCR (Document "Date of Onset" if Symptomatic) Sent. jl7 13:50 No provider procedures requiring assistance completed. Patient admitted, IV remains in jl7 place. intact, No redness/swelling at site. Administered Medications: No medications were administered Outcome: 10:06 Decision to Hospitalize by Provider. kb 13:50 Admitted to Tele accompanied by tech, via wheelchair, room 224, with chart, Report jl7 called to YUKI Valadez 13:50 Condition: stable 13:50 Discharge instructions given to patient, Instructed on the need for admit, Demonstrated understanding of instructions. 14:03 Patient left the ED. jl7 Signatures: Dispatcher [employer] EDUT Suzanne Ballard, PYTHON ENGINEERRadha PYTHON ENGINEER-Clotilde Grewal ds1 Shana Cody RN RN Ele Souza RN RN jl7 Corrections: (The following items were deleted from the chart) 07:38 07:38 PSHx: None; jorge patel
--- NOTE | 2021-01-25 10:07 | EDPHYS ---
Physician Documentation [facility] Name: Telma Sinclair Age: 45 yrs Sex: Female : 1975 Arrival Date: 01/25/2021 Time: 07:33 Bed 15 Private MD: ED Physician El Chin HPI: 01/25 07:55 This 45 yrs old Female presents to ER via Ambulatory with complaints of Chest Pain - W/ kb L arm Pain, Shortness Of Breath. 07:57 The patient or guardian reports chest pain that is located primarily in the anterior kb chest wall, left. Onset: 1.5 week(s) ago. The pain does not radiate. Associated signs and symptoms: Pertinent positives: shortness of breath. The chest pain is described as aching. Duration: The patient or guardian reports a single episode, that is still ongoing. Modifying factors: The symptoms are alleviated by nothing. the symptoms are aggravated by nothing. Severity of pain: At its worst the pain was moderate in the emergency department the pain is unchanged. The patient has not experienced similar symptoms in the past. The patient has not recently seen a physician. Pt reports left chest pain with shortness of breath that started 1.5-2 weeks ago. States the pain has been constant. Reports shortness of breath since she had covid over the summer, but now it feels like she is trying to catch her breath. . 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 - Social history:: Smoking status: Patient/guardian denies using tobacco, but has a distant history of tobacco abuse. ROS: 07:54 Constitutional: Negative for fever, chills, and weight loss. kb 07:54 Cardiovascular: Positive for chest pain, Negative for edema, orthopnea, palpitations, paroxysmal nocturnal dyspnea. 07:54 Respiratory: Positive for shortness of breath. 07:54 All other systems are negative. Exam: 07:54 Constitutional: This is a well developed, well nourished patient who is awake, alert, kb and in no acute distress. Head/Face: Normocephalic, atraumatic. ENT: Moist Mucous membranes Cardiovascular: Regular rate and rhythm with a normal S1 and S2. No gallops, murmurs, or rubs. No pulse deficits. Respiratory: Respirations even and unlabored. No increased work of breathing, no retractions or nasal flaring. Abdomen/GI: Soft, non-tender. No distention Skin: Warm, dry with normal turgor. Normal color. MS/ Extremity: Pulses equal, no cyanosis. Neurovascular intact. Full, normal range of motion. Neuro: Awake and alert, GCS 15, oriented to person, place, time, and situation. Moves all extremities. Normal gait. Psych: Awake, alert, with orientation to person, place and time. Behavior, mood, and affect are within normal limits. 07:54 ECG was reviewed by the Attending Physician. Vital Signs: 07:38 BP 179 / 89; Pulse 71; Resp 15; Temp 97.8(TE); Pulse Ox 100% on R/A; Weight 83.91 kg; bb Height 5 ft. 2 in. (157.48 cm); Pain 9/10; 08:48 BP 148 / 80; Pulse 64; Resp 15; Pulse Ox 100% ; jl7 09:56 BP 133 / 83; Pulse 89; Resp 15; Pulse Ox 98% ; Pain 9/10; jl7 13:00 BP 132 / 70; Pulse 61; Resp 15; Pulse Ox 98% ; jl7 07:38 Body Mass Index 33.84 (83.91 kg, 157.48 cm) bb MDM: 07:42 Patient medically screened. kb 07:54 Data reviewed: vital signs, nurses notes. Data interpreted: Pulse oximetry: on room air kb is 100 %. Interpretation: normal. 10:01 The patient was given aspirin in the Emergency Department. Counseling: I had a detailed kb discussion with the patient and/or guardian regarding: the historical points, exam findings, and any diagnostic results supporting the discharge/admit diagnosis, lab results, radiology results, the need for further work-up and treatment in the hospital. 01/25 07:39 Order name: Basic Metabolic Panel; Complete Time: 08:38 kb 01/25 07:39 Order name: CBC with Diff; Complete Time: 08:17 kb 01/25 07:39 Order name: LFT's; Complete Time: 08:38 kb 01/25 07:39 Order name: Magnesium; Complete Time: 08:38 kb 01/25 07:39 Order name: NT PRO-BNP; Complete Time: 08:38 kb 01/25 07:39 Order name: PT-INR; Complete Time: 08:17 kb 01/25 07:39 Order name: Troponin (emerg Dept Use Only); Complete Time: 08:38 kb 01/25 07:39 Order name: XRAY Chest (1 view); Complete Time: 08:57 kb 01/25 09:19 Order name: Troponin (emerg Dept Use Only); Complete Time: 12:45 kb 01/25 10:10 Order name: COVID-19 SARS RT PCR (Document "Date of Onset" if Symptomatic) kb 01/25 10:10 Order name: SARS-COV-2 RT PCR; Complete Time: 12:45 EDMS 01/25 13:11 Order name: Troponin I EDIN 01/25 07:39 Order name: EKG; Complete Time: 07:40 kb 01/25 07:39 Order name: Cardiac monitoring; Complete Time: 08:03 kb 01/25 07:39 Order name: EKG - Nurse/Tech; Complete Time: 08:03 kb 01/25 07:39 Order name: IV Saline Lock; Complete Time: 08:03 kb 01/25 07:39 Order name: Labs collected and sent; Complete Time: 08:03 kb 01/25 07:39 Order name: O2 Per Protocol; Complete Time: 08:03 kb 01/25 07:39 Order name: O2 Sat Monitoring; Complete Time: 08:03 kb 01/25 09:19 Order name: EKG; Complete Time: 09:20 kb 01/25 09:19 Order name: EKG - Nurse/Tech; Complete Time: 09:55 kb 01/25 13:11 Order name: CONS Physician Consult EDIN 01/25 13:11 Order name: Heart Healthy EDIN 01/25 13:11 Order name: Echo with Doppler EDMS 01/25 13:11 Order name: EKG Electrocardiogram EDIN 01/25 13:11 Order name: EKG Electrocardiogram EDIN EC:54 Rate is 56 beats/min. Rhythm is regular. Left axis deviation noted. VT interval is kb normal at 158 msec. QRS interval is normal at 92 msec. QT interval is normal at 458 msec. Administered Medications: No medications were administered Disposition: 17:57 Co-signature as Attending Physician, El Chin MD I agree with the assessment and kdr plan of care. Disposition Summary: 01/25/21 10:06 Hospitalization Ordered Hospitalization Status: Observation kb Provider: Bhavna Pierce Location: Telemetry/MedSurg (observation) kb Condition: Stable kb Problem: new kb Symptoms: are unchanged kb Bed/Room Type: Standard Room Assignment: 224(01/25/21 13:42) em1 Diagnosis - Chest pain, unspecified kb Forms: - Medication Reconciliation Form kb - SBAR form kb Signatures: Dispatcher [employer] EDSuzanne Whiting, JENNA-C JENNA-El Nance MD MD [facility] Shana Cody, RN RN Luis Choudhary em1 Corrections: (The following items were deleted from the chart) 07:38 07:38 PSHx: None; jorge patel 10:15 10:10 CORONAVIRUS ordered. EDIN EDMS 13:42 10:06 kb em1
[2021-01-25] MEDS ORDERED: ACETAMINOPHEN 500 MG TAB PO PRN (13:04)
[2021-01-25 14:35] VITALS: BMI 34.2
[2021-01-25] MEDS ORDERED: INFLUENZA VACCINE (for 6+ mo) 0.5 ML DOSE IMVAC ONE (17:00)
[2021-01-25] MEDS ORDERED: PNEUMOCOCCAL VACCINE 0.5 ML IMVAC ONE (17:00)
[2021-01-25] MEDS: MORPHINE 4 MG/ML SYR IV PRN (17:57)
--- NOTE | 2021-01-25 18:41 | P.HP ---
Certification for Inpatient Patient admitted to: Observation With expected LOS: <2 Midnights Patient will require the following post-hospital care: None Practitioner: I am a practitioner with admitting privileges, knowledge of patient current condition, hospital course, and medical plan of care. Services: Services provided to patient in accordance with Admission requirements found in Title 42 Section 412.3 of the Code of Federal Regulations Patient History Date of Service: 01/25/21 Reason for admission: CP r/o ACS History of Present Illness: Patient is a 45yo female who was admitted to the hospital with CP. Patient has not been feeling well lately. She states the chest pain has been going on for since this morning. He goes to the left side of her arm and shoulder. It started when she woke up and has been persistent. She noticed her blood pressure was 190/120. She came to the emergency room for evaluation. In the ER her blood pressure was 180/100. She was admitted to the hospital for further evaluation. Her initial EKG and troponins were unremarkable. She will be admitted for further evaluation with cardiology consultation. Allergies No Known Allergies Allergy (Verified 01/25/21 20:03) Home Medications: Furosemide [Lasix] 20 mg PO DAILY #30 tab 01/26/21 Hydrocodone 5/APAP 325 [Mead 5/325] 1 tab PO Q6H PRN #30 tab 01/26/21 Metoprolol Tartrate [Lopressor*] 25 mg PO BID #60 tab 01/26/21 Potassium Chloride [K-Dur] 10 meq PO DAILY #30 tab.er.prt 01/26/21 - Past Medical/Surgical History Has patient received pneumonia vaccine in the past: No -: Kidney stone -: - Family History Father Family History: Reviewed- Non-Contributory - Social History Smoking Status: Former smoker Alcohol use: No CD- Drugs: No Place of Residence: Home Review of Systems 10-point ROS is otherwise unremarkable Physical Examination - Vital Signs Temperature: 98 F Blood Pressure: 154/73 Pulse: 59 Respirations: 17 Pulse Ox (%): 98 - Physical Exam General: Alert, In no apparent distress, Oriented x3 HEENT: Atraumatic, PERRLA, Mucous membr. moist/pink, EOMI, Sclerae nonicteric Neck: Supple, 2+ carotid pulse no bruit, No LAD, Without JVD or thyroid abnormality Respiratory: Diminished, Crackles/rales Cardiovascular: Regular rate/rhythm, Normal S1 S2 Gastrointestinal: Normal bowel sounds, Soft and benign, Non-distended, No tenderness Musculoskeletal: No clubbing, No swelling, No tenderness Integumentary: No rashes Neurological: Normal gait, Normal speech, Normal strength at 5/5 x4 extr, Normal tone, Sensation intact, Cranial nerves 3-12 intact, Normal affect Lymphatics: No axilla or inguinal lymphadenopathy - Studies Laboratory Data (last 24 hrs) 01/25/21 07:58: PT 9.9, INR 0.86 01/25/21 07:58: WBC 6.00, Hgb 11.4 L, Hct 35.1 L, Plt Count 324 01/25/21 07:58: Sodium 140, Potassium 3.9, BUN 11, Creatinine 0.65, Glucose 96, Magnesium 2.0, Total Bilirubin 0.2, AST 12 L, ALT 23, Alkaline Phosphatase 62 Assessment & Plan - Problems (Diagnosis) (1) Chest pain, rule out acute myocardial infarction Current Visit: Yes Status: Acute - Plan 1. Serial troponins and EKG 2. Cardiology consultation 3. Echocardiogram and stress test outpatient 4. Anti-platelet therapy, anti coagulation, beta-tariq, statin, and O2 as needed 5. IV morphine for pain 6. Nitro p.r.n. 7. CT of the chest for further evaluation Discharge Plan: Home Plan to discharge in: Greater than 2 days - Advance Directives Does patient have a Living Will: No Does patient have a Durable POA for Healthcare: No - Code Status/Comfort Care Code Status Assessed: Yes Code Status: Full Code Critical Care: No Time Spent Managing PTS Care (In Minutes): 45
[2021-01-25] MEDS: METOPROLOL TAR 25 MG TAB PO SCH (19:59)
[2021-01-25] MEDS: DIPHENHYDRAMINE 50 MG/ML VIAL IV PRN (21:14)
[2021-01-26] MEDS: MORPHINE 4 MG/ML SYR IV PRN ×3 (03:08→19:04)
[2021-01-26 03:59] LABS: HDL Cholesterol 46 mg/dL (40-60); LDL Cholesterol, Calculated 111 (<130); Troponin I < 0.02 ng/mL (0.0-0.045)
[2021-01-26] MEDS: METOPROLOL TAR 25 MG TAB PO SCH ×2 (08:33→21:42)
[2021-01-26] MEDS: ASPIRIN EC 81 MG TAB PO SCH (08:33)
[2021-01-26] MEDS: ENOXAPARIN 40 MG/0.4 ML SQ SCH (08:33)
--- NOTE | 2021-01-26 16:13 | RAD REPORT ---
EXAM DESCRIPTION: CT - Chest For Pe Angio - 01/26/2021 3:35 pm CLINICAL HISTORY: Chest pain. PE COMPARISON: Chest Single View dated 01/25/2021; Chest Pa And Lat (2 Views) dated 08/19/2019 TECHNIQUE: CT angiogram of the pulmonary arteries was performed with MIP. All CT scans are performed using dose optimization technique as appropriate and may include automated exposure control or mA/KV adjustment according to patient size. FINDINGS: No evidence of pulmonary thromboembolism. No acute aortic finding demonstrated. Ground-glass opacity is present in both lungs which may represent mild pulmonary edema. No significant pericardial or pleural fluid. No concerning bony finding. IMPRESSION: No evidence of pulmonary thromboembolism. Mild pulmonary edema is likely present.
--- NOTE | 2021-01-26 20:48 | P.PN ---
Subjective Date of Service: 01/26/21 Patient's serial troponins and EKG were unremarkable. Plan was to discharge patient home but she was not feeling well and was reluctant to go home because her pain was persistent. Her blood pressure did get more elevated around this time to 170/90. Patient still having persistent chest pain. Blood pressure is still labile. Adjust blood pressure medications. CT of the chest does show some pulmonary edema. Will go ahead and start patient on Lasix. Also give IV steroids x1 for persistent pain. Start anti coagulation with Lovenox subcu. Possible unstable angina. Chest pain has been persistent and she states that morphine is the only thing that is helped her so far. Review of Systems 10-point ROS is otherwise unremarkable Physical Examination - Vital Signs Temperature: 98 F Blood Pressure: 154/73 Pulse: 59 Respirations: 17 Pulse Ox (%): 98 - Physical Exam General: Alert, In no apparent distress HEENT: Atraumatic, PERRLA, EOMI Neck: Supple, JVD not distended Respiratory: Clear to auscultation bilaterally, Normal air movement Cardiovascular: Regular rate/rhythm, Normal S1 S2 Gastrointestinal: Normal bowel sounds, No tenderness Musculoskeletal: No tenderness Integumentary: No rashes Neurological: Normal speech, Normal tone, Normal affect Lymphatics: No axilla or inguinal lymphadenopathy - Studies Medications List Reviewed: Yes Assessment & Plan - Problems (Diagnosis) (1) Chest pain, rule out acute myocardial infarction Current Visit: Yes Status: Acute (2) Unstable angina Current Visit: Yes Status: Acute (3) Malignant hypertension Current Visit: Yes Status: Acute (4) Pulmonary edema Current Visit: Yes Status: Acute - Plan hold discharge toll a.m. 1. Start Lovenox and Lasix 2. Continue with cardiology consultation 3. Outpatient echocardiogram and stress test was recommended and will do on Thursday if Cardiology agreeable 4. Anti-platelet therapy, anti coagulation, beta-tariq, statin, and O2 as needed 5. IV morphine for pain 6. Nitro p.r.n. 7. CT of the chest was unremarkable Discharge Plan: Home Plan to discharge in: Greater than 2 days - Advance Directives Does patient have a Living Will: No Does patient have a Durable POA for Healthcare: No - Code Status/Comfort Care Code Status: Full Code
[2021-01-26] MEDS: DIPHENHYDRAMINE 50 MG/ML VIAL IV PRN (21:36)
[2021-01-27] MEDS: ENOXAPARIN 40 MG/0.4 ML SQ SCH (08:50)
[2021-01-27] MEDS: ASPIRIN EC 81 MG TAB PO SCH (08:51)
[2021-01-27] MEDS: METOPROLOL TAR 25 MG TAB PO SCH ×2 (08:51→20:34)
[2021-01-27] MEDS: MORPHINE 4 MG/ML SYR IV PRN ×2 (10:41→20:35)
--- NOTE | 2021-01-27 21:32 | P.PN ---
Date of Service: 01/27/21 Subjective Patient is clinically feeling okay. Pain is controlled. Awaiting for stress test In the morning. Continue with anticoagulation and antiplatelet therapy. Blood pressure is better controlled Review of Systems 10-point ROS is otherwise unremarkable Physical Examination - Vital Signs Reviewed - Physical Exam General: Alert, In no apparent distress Respiratory: Clear to auscultation bilaterally, Normal air movement Cardiovascular: Regular rate/rhythm, Normal S1 S2 Gastrointestinal: Normal bowel sounds, No tenderness Neurological: Normal speech, Normal tone, Normal affect Assessment & Plan - Problems (Diagnosis) (1) Chest pain, rule out acute myocardial infarction Current Visit: Yes Status: Acute (2) Unstable angina Current Visit: Yes Status: Acute (3) Malignant hypertension Current Visit: Yes Status: Acute (4) Pulmonary edema Current Visit: Yes Status: Acute - Plan Continue with plan of care as mentioned below: 1. Start Lovenox and Lasix 2. Continue with cardiology consultation 3. Will do stress test and echocardiogram at this time 4. Anti-platelet therapy, anti coagulation, beta-tariq, statin, and O2 as needed 5. IV morphine for pain 6. Nitro p.r.n. 7. CT of the chest was unremarkable
[2021-01-27] MEDS: DIPHENHYDRAMINE 50 MG/ML VIAL IV PRN (21:39)
[2021-01-28 00:34] VITALS: O2SAT 97
--- NOTE | 2021-01-28 06:13 | P.DS ---
Admission Date: 01/27/21 Discharge Date: 01/28/21 Primary Care Provider: none Disposition: ROUTINE DISCHARGE Discharge Condition: GOOD Reason for Admission: Chest pain Consultations: Cardiology-Dr. López Procedures: COVID: Negative CXR: COMPARISON: <Comparisons> FINDINGS: Lines: None. Lungs: No evidence of edema or pneumonia. Pleural: No significant pleural effusions or pneumothorax. Cardiac: The heart size is within normal limits. Bones: No acute fractures. IMPRESSION: No acute cardiopulmonary disease. ECHO: CARDIAC HISTORY: CATHERIZATION: NO SURGERY: NO PROSTHETIC VALVE: NO PACEMAKER: NO MEASUREMENTS (cm) DIASTOLIC (NORMALS) SYSTOLIC (NORMALS) IVSd 1.0 (0.6-1.2) LA Diam 3.6 (1.9-4.0) LVEF 65% LVIDd 4.9 (3.5-5.7) LVIDs 3.1 (2.0-3.5) %FS 36% LVPWd 1.1 (0.6-1.2) Ao Diam 2.6 (2.0-3.7) 2 DIMENSIONAL ASSESSMENT: RIGHT ATRIUM: NORMAL LEFT ATRIUM: NORMAL RIGHT VENTRICLE: NORMAL LEFT VENTRICLE: NORMAL TRICUSPID VALVE: NORMAL MITRAL VALVE: NORMAL PULMONIC VALVE: NORMAL AORTIC VALVE: NORMAL PERICARDIAL EFFUSION: NONE AORTIC ROOT: NORMAL LEFT VENTRICULAR WALL MOTION: NORMAL DOPPLER/COLOR FLOW: NORMAL COMMENTS: NORMAL 2-DIMENSIONAL ECHOCARDIOGRAM WITH DOPPLER. NO WALL MOTION ABNORMALITY. NO EFFUSION. CT Chest: COMPARISON: Chest Single View dated 01/25/2021; Chest Pa And Lat (2 Views) dated 08/19/2019 TECHNIQUE: CT angiogram of the pulmonary arteries was performed with MIP. All CT scans are performed using dose optimization technique as appropriate and may include automated exposure control or mA/KV adjustment according to patient size. FINDINGS: No evidence of pulmonary thromboembolism. No acute aortic finding demonstrated. Ground-glass opacity is present in both lungs which may represent mild pulmonary edema. No significant pericardial or pleural fluid. No concerning bony finding. IMPRESSION: No evidence of pulmonary thromboembolism. Mild pulmonary edema is likely present. Cardiac Stress test: COMPARISON: No comparisons TECHNIQUE: The patient was administered approximately 10mCi of Tc 99m Sestamibi prior to resting SPECT imaging of the heart. The patient was then administered approximately 30 mCi of Tc 99m Sestamibi following exercise or pharmacologic stress. Multiplanar SPECT images were reviewed. FINDINGS: No stress induced ischemic defect is seen to suggest stress induced ischemia. No fixed defect is seen to suggest hibernating myocardium or scarred myocardium. The end diastolic volume is 120 ml, the end systolic volume is 61 ml, and the ejection fraction is 49 %. IMPRESSION: No stress induced ischemia. Medical Problem List: Chest pain Hypertension GERD Brief History of Present Illness: 45-year-old female presented with chest pain. Chest pain would radiate to the left arm. Blood pressure was found to be significantly elevated upon evaluation. Patient was admitted for further evaluation and treatment. Hospital Course: Patient presented with chest pain and elevated blood pressure. Patient was admitted for further evaluation and treatment. Cardiac enzymes x4 unremarkable. LDL 111. Patient seen and evaluated by cardiology. Cardiology recommends no further intervention. Echocardiogram showed normal ejection fraction. Cardiac stress test performed. Cardiac stress test showed no stress-induced ischemia. At discharge blood pressure within normal range. At discharge patient will continue with metoprolol 12.5 mg 1 pill twice daily. Recommend to maintain blood pressure less than 130/80. If blood pressure remains above 140/90 further adjustment may be required. Recommend follow-up with cardiology in 2 to 4 weeks to follow-up his hospitalization. Recommend to establish care locally with a PCP to follow-up his hospitalization and further her care. Patient may have underlying GERD. Recommend to take [id number] Pepcid 20 mg 1 pill twice daily. Patient may require GI evaluation as an outpatient with EGD as an outpatient. Information on GI will be provided. Vital Signs/Physical Exam: Temp Pulse Resp BP Pulse Ox 97.1 F 57 19 105/68 96 01/28/21 04:00 01/28/21 04:00 01/28/21 04:00 01/28/21 04:00 01/28/21 04:00 General: Alert, In no apparent distress, Oriented x3, Cooperative HEENT: Atraumatic Neck: Supple Respiratory: Clear to auscultation bilaterally, Normal air movement Cardiovascular: Normal pulses, Regular rate/rhythm Gastrointestinal: Normal bowel sounds, No ascites Musculoskeletal: No erythema, No tenderness, No warmth Integumentary: No tenderness/swelling, No erythema, No warmth, No cyanosis Neurological: Normal speech, Normal strength at 5/5 x4 extr, Normal tone Laboratory Data at Discharge: WBC 6.00 K/uL (4.3-10.9) 01/25/21 07:58 Hgb 11.4 g/dL (12.0-15.0) L 01/25/21 07:58 Hct 35.1 % (36.0-45.0) L 01/25/21 07:58 Plt Count 324 K/uL (152-406) 01/25/21 07:58 PT 9.9 SECONDS (9.5-12.5) 01/25/21 07:58 INR 0.86 01/25/21 07:58 Sodium 140 mmol/L (136-145) 01/25/21 07:58 Potassium 3.9 mmol/L (3.5-5.1) 01/25/21 07:58 BUN 11 mg/dL (7-18) 01/25/21 07:58 Creatinine 0.65 mg/dL (0.55-1.3) 01/25/21 07:58 Glucose 96 mg/dL (74-106) 01/25/21 07:58 Magnesium 2.0 mg/dL (1.8-2.4) 01/25/21 07:58 Total Bilirubin 0.2 mg/dL (0.2-1.0) 01/25/21 07:58 AST 12 U/L (15-37) L 01/25/21 07:58 ALT 23 U/L (12-78) 01/25/21 07:58 Alkaline Phosphatase 62 U/L (45-117) 01/25/21 07:58 Troponin I < 0.02 ng/mL (0.0-0.045) 01/26/21 03:33 Triglycerides 201 mg/dL (<150) H 01/26/21 03:33 Cholesterol 197 mg/dL (<200) 01/26/21 03:33 HDL Cholesterol 46 mg/dL (40-60) 01/26/21 03:33 Cholesterol/HDL Ratio 4.28 01/26/21 03:33 Home Medications: Hydrocodone 5/APAP 325 [[place] 5/325] 1 tab PO Q6H PRN #30 tab 01/26/21 Metoprolol Tartrate [Lopressor*] 12.5 mg PO BID #30 tab 01/28/21 New Medications: Metoprolol Tartrate [Lopressor*] 12.5 mg PO BID #30 tab Hydrocodone 5/APAP 325 [[place] 5/325] 1 tab PO Q6H PRN #30 tab PRN Reason: Pain Physician Discharge Instructions: Patient presented with chest pain and elevated blood pressure. Patient was admitted for further evaluation and treatment. Cardiac enzymes x4 unremarkable. LDL 111. Patient seen and evaluated by cardiology. Cardiology recommends no further intervention. Echocardiogram showed normal ejection fraction. Cardiac stress test performed. Cardiac stress test showed no stress-induced ischemia. At discharge blood pressure within normal range. At discharge patient will continue with metoprolol 12.5 mg 1 pill twice daily. Recommend to maintain blood pressure less than 130/80. If blood pressure remains above 140/90 further adjustment may be required. Recommend follow-up with cardiology in 2 to 4 weeks to follow-up his hospitalization. Recommend to establish care locally with a PCP to follow-up his hospitalization and further her care. Patient may have underlying GERD. Recommend to take [id number] Pepcid 20 mg 1 pill twice daily. Patient may require GI evaluation as an outpatient with EGD as an outpatient. Information on GI will be provided. Diet: AHA Activity: Fall precautions Followup: NONE,NONE [Primary Care Provider] - Time spent managing pt's care (in minutes): 55
[2021-01-28] MEDS ORDERED: REGADENOSON 0.4 MG/5 ML SYR IV ONE (08:17)
--- NOTE | 2021-01-28 08:27 | ECHO ---
HEIGHT: 5 ft 2 in WEIGHT: 187 lb 6.4 oz DATE OF STUDY: 01/25/[address]: Bhavna Pierce MD 2-DIMENSIONAL: YES M.MODE: YES DOPPLER: YES COLOR FLOW: YES TDS: PORTABLE: DEFINITY: BUBBLE STUDY: DIAGNOSIS: CHEST PAIN CARDIAC HISTORY: CATHERIZATION: NO SURGERY: NO PROSTHETIC VALVE: NO PACEMAKER: NO MEASUREMENTS (cm) DIASTOLIC (NORMALS) SYSTOLIC (NORMALS) IVSd 1.0 (0.6-1.2) LA Diam 3.6 (1.9-4.0) LVEF 65% LVIDd 4.9 (3.5-5.7) LVIDs 3.1 (2.0-3.5) %FS 36% LVPWd 1.1 (0.6-1.2) Ao Diam 2.6 (2.0-3.7) 2 DIMENSIONAL ASSESSMENT: RIGHT ATRIUM: NORMAL LEFT ATRIUM: NORMAL RIGHT VENTRICLE: NORMAL LEFT VENTRICLE: NORMAL TRICUSPID VALVE: NORMAL MITRAL VALVE: NORMAL PULMONIC VALVE: NORMAL AORTIC VALVE: NORMAL PERICARDIAL EFFUSION: NONE AORTIC ROOT: NORMAL LEFT VENTRICULAR WALL MOTION: NORMAL DOPPLER/COLOR FLOW: NORMAL COMMENTS: NORMAL 2-DIMENSIONAL ECHOCARDIOGRAM WITH DOPPLER. NO WALL MOTION ABNORMALITY. NO EFFUSION. TECHNOLOGIST: DANIEL BEST
[2021-01-28] MEDS: ASPIRIN EC 81 MG TAB PO SCH (09:15)
[2021-01-28] MEDS: METOPROLOL TAR 25 MG TAB PO SCH (09:15)
[2021-01-28] MEDS: ENOXAPARIN 40 MG/0.4 ML SQ SCH (09:15)
--- NOTE | 2021-01-28 11:45 | RAD REPORT ---
EXAM DESCRIPTION: NM - Rest Stress Cardiac Imaging - 01/28/2021 11:39 am CLINICAL HISTORY: CP Chest pain. COMPARISON: No comparisons TECHNIQUE: The patient was administered approximately 10mCi of Tc 99m Sestamibi prior to resting SPE CT imaging of the heart. The patient was then administered approximately 30 mCi of Tc 99m Sestamibi f ollowing exercise or pharmacologic stress. Multiplanar SPECT images were reviewed. FINDINGS: No stress induced ischemic defect is seen to suggest stress induced ischemia. No fixed def ect is seen to suggest hibernating myocardium or scarred myocardium. The end diastolic volume is 120 ml, the end systolic volume is 61 ml, and the ejection fraction is 49 %. IMPRESSION: No stress induced ischemia.
[2021-01-28 12:49] VITALS: BP 154/73; TEMP 98
--- NOTE | 2021-01-28 15:11 | TREADPHA ---
DX: CHEST PAIN Date of Study: 01/28/2021 Ht: 5' 2 " Wt: 187 lb 6.4 oz Consulting Physician: SANTA MEDICATIONS: TYLENOL, ASPIRIN, LOVENOX, LOPRESSOR HISTORY: POSITIVE FAMILY HISTORY. FORMER SMOKER. PHYSICIAL EXAMINATION: RESTING B.P.: 157/83 RESTING H.R.: 56 RESTING EKG: NORMAL PROTOCOL: LEXISCAN EXERCISE TIME: 3:30 B.P. AT [place] STRESS: [*] IMPRESSION: LEXISCAN STRESS TEST PERFORMED. CARDIOLITE INJECTED PER PROTOCOL. SEE NUCLEAR MEDICINE REPORT.NO SUPRAVENTRICULAR OR VENTRICULAR TACHYCARDIA. NO EKG CHANGES OF ISCHEMIA WITH LEXISCAN.
[2021-01-28] MEDS ORDERED: METOPROLOL TAR 25 MG TAB PO SCH (21:00)
--- NOTE | 2021-01-30 08:20 | EKG ---
Test Date: 2021-01-25 Test Time: 09:48:32 Telemarketing Fundraiser: TP MEASUREMENT RESULTS: Intervals: Rate: 52 MO: 168 QRSD: 86 QT: 462 QTc: 429 [place]: P: 29 MO: 168 QRS: 72 T: 55 INTERPRETIVE STATEMENTS: Sinus bradycardia Possible Anterior infarct, age undetermined Abnormal ECG Compared to ECG 01/25/2021 07:52:32 Myocardial infarct finding now present Left ventricular hypertrophy no longer present Electronically Signed On 01-30-21 08:05:16 INTERNATIONAL MARKETING COORDINATOR by Flynn López
--- NOTE | 2021-01-30 08:20 | EKG ---
Test Date: 2021-01-25 Test Time: 07:52:32 Parts Interpreter: KEITH MEASUREMENT RESULTS: Intervals: Rate: 56 CO: 158 QRSD: 92 QT: 458 QTc: 441 [place]: P: 29 CO: 158 QRS: -11 T: 3 INTERPRETIVE STATEMENTS: Sinus bradycardia Voltage criteria for left ventricular hypertrophy Abnormal ECG Compared to ECG 09/28/2009 02:11:08 Sinus rhythm no longer present Electronically Signed On 01-30-21 08:05:18 CHICKEN PICKER by Flynn López
== END 2021-01-28 13:50 | disposition home or self-care (01) | DRG 311 ==
LOC: ER 07:31 → ERHOLD 13:25 → 2ND 14:00 → OBSVTOIN 01-27 13:41
PROVIDERS: ADMIT Hospitalist; ATTEND Hospitalist
DX: I20.0 Unstable angina (principal); I10 Essential (primary) hypertension; K21.9 Gastro-esophageal reflux disease without esophagitis; Z20.822 Contact with and (suspected) exposure to COVID-19
CPT/HCPCS: 36415; 71045; 71275; 78452; 80048; 80061; 80076; 83735; 83880; 84484; 85025; 85379; 85610; 93005; 93017; 93306; 99285; A9500; G0378; J1200; J1650; J2405; J2785; Q9967; U0003

== ENCOUNTER 2022-07-28 10:38 | Emergency (ER) | payer SELFPAY ==
--- OUTSIDE RECORDS SUMMARY | 2022-07-28 10:44 | XMS REPORT | Continuity of Care Document ---
:1975 Author Organization [facility] t Address [address] [place] [address] Care Team Providers Name Role Phone PCP, PATIENT DOES NOT HAVE A Primary Care Physician Unavaila blane Dominguez MD, Nahomi Attending Clinician NAHOMI DOMINGUEZ Attending Clinician Unavailable DIONE MODI Attending Clinician Unavailable Dione Modi DO Attending Clinician PEG BRAND Attending Clinician Unavailable Cathie SILK TRIMMERPeg Farr Attending Clinician Doctor Unassigned, [place] Attending Clinician Unavailable YURI KUHN Attending Clinician Unavailable Yuri Koch Attending Clinician NAHOMI DOMINGUEZ Admitting Clinician Unavailable Alberto MARTIN, Nahomi Admitting Clinician DIONE MODI Admitting Clinician Unavailable PEG BRAND Admitting Clinician Unavailable YURI KUHN Admitting Clinician Unavailable Problems Condition Condition Condition Status Onset Resolution Last Treating Co mments Source Name Details Category Date Date Treatment Clinician Date Right Right Disease Active Overview: Van s ureteral ureteral 2-23 Formattin ity of [place] 00:00: g of this [place] 00 note Medical might be Branch different from the original. Added automatic ally from request for surgery [id number] Obstipatio Obstipatio Disease Active U karineers n n 7-26 ity of 00:00: [place] 00 Medical Branch Allergies, Adverse Reactions, Alerts Allergy Allergy Status Severity Reaction(s) Onset Inactive Treating Comm ents Source Name Type Date Date Clinician Tramadol Propensi Active Itching 2018-0 Unive rs ty to 10-23 ity of adverse 00:00: [place] reaction 00 Medical s Branch Acetamin Propensi Active Nausea 2018-0 Univer s ophen-Co ty to and/or 10-23 ity of deine adverse Vomiting 00:00: [place] reaction 00 Medical s Branch TRAMADOL DRUG Active ITCHING 2018-0 Univers INGREDI 10-23 ity of 00:00: [place] 00 Medical Branch ACETAMIN DRUG Active N/V 2018-0 Univers OPHEN-CO 10-23 ity of DEINE 00:00: [place] 00 Medical Branch Social History Social Habit Start Date Stop Date Quantity Comments Source History SDOH Social Unive rsity of Connections [facility] Med ical Together Branch History SDOH Social Unive rsity of Connections [facility] Medical Branch History SDOH Social Unive rsity of Connections [place] [facility] Membership Branch History SDOH Social Unive rsity of Connections [place] [facility] Meetings Branch History of tobacco Smokes tobacco Un iversity of use daily [place] [facility] Exposure to 2022-04-21 2022-05-01 Not sure University of SARS-CoV-2 (event) 00:00:00 14:19:00 [place] [facility] History SDOH 2022-05-01 2022-05-01 1 University o f Alcohol Frequency 00:00:00 00:00:00 [place] M edical Branch History SDOH 2022-05-01 2022-05-01 0 University o f Alcohol Std Drinks 00:00:00 00:00:00 [place] [facility] History SDOH 2022-05-01 2022-05-01 1 University o f Alcohol Binge 00:00:00 00:00:00 [place] Medic al Branch History SDOH Social 2022-05-01 2022-05-01 5 Unive rsity of Connections Phone 00:00:00 00:00:00 [place] M edical Branch History SDOH Social 2022-05-01 2022-05-01 3 Unive rsity of Connections Living 00:00:00 00:00:00 [place] [facility] History SDOH 2022-05-01 2022-05-01 0 University o f Physical Activity 00:00:00 00:00:00 [place] M edical DPW Branch History SDOH 2022-05-01 2022-05-01 0 University o f Physical Activity 00:00:00 00:00:00 [facility] edical MPS Branch History SDOH 2022-05-01 2022-05-01 5 University o f Financial 00:00:00 00:00:00 [place] [facility] History SDOH Food 2022-05-01 2022-05-01 1 Univers ity of Worry 00:00:00 00:00:00 [place] [facility] History SDOH Food 2022-05-01 2022-05-01 1 Univers ity of Scarcity 00:00:00 00:00:00 [place] [facility] History SDOH 2022-05-01 2022-05-01 2 University o f Transport Med 00:00:00 00:00:00 [place] Medic al Branch History SDOH 2022-05-01 2022-05-01 2 [place] o f Transport Non-Med 00:00:00 00:00:00 [facility] Sex Assigned At [birth year] Universit y of 00:00:00 00:00:00 [facility] Smoking Status Start Date Stop Date Source Smokes tobacco daily 2014-10-01 00:00:00 Univers ity of [facility] Medications Ordered Filled Start Stop Current Ordering Indication Dosage Frequency Signature Comments Components Source Medication Medication Date Date Medication? Clinician (SIG) Name Name ondansetron Yes 4mg 4 mg, Slow Univers (ZOFRAN 2-23 IV Push, ity of (PF)) 23:53: Q4HPRN, 1 [place] injection 4 50 dose, Medical mg Starting Branch on Trish 05/01/22 at 1753, Until Discontinu ed, Routine, Nausea and Vomiting (N/V), DSU Recovery ondansetron 4mg 4 mg, Slow Univers (ZOFRAN 2-23 02-24 IV Push, ity of (PF)) 23:53: 02:34 Q4HPRN, 1 [place] injection 4 50 :20 dose, Medical mg Starting Branch on Trish 05/01/22 at 1753, Until Trish 05/01/22 at 2033, Routine, Nausea and Vomiting (N/V), DSU Recovery FENTanyl PF Yes 25ug 25 mcg, Uni vers (SUBLIMAZE 2-23 Slow IV ity of (PF)) 23:46: Push, [place] injection 57 Q5MIN PRN, Medi martha 25 mcg 4 doses, Branch Starting on Trish 05/01/22 at 1746, Until Discontinu ed, Routine, Pain (scale 4-6), PACU ondansetron 0 Yes 4mg 4 mg, Slow Univers (ZOFRAN 05-01 IV Push, ity of (PF)) 23:46: PRN, 1 [place] injection 4 57 dose, Medical mg Starting Branch on Trish 05/01/22 at 1746, Until Discontinu ed, Routine, Nausea and Vomiting (N/V), PACU FENTanyl PF 2022-0 2022- No 25ug 25 mcg, Un payam (SUBLIMAZE 05-01 Slow IV ity o f (PF)) 23:46: 02:34 Push, [place] injection 57 :20 Q5MIN PRN, Medi martha 25 mcg 4 doses, Branch Starting on Trish 05/01/22 at 1746, Until Trish 05/01/22 at 2034, Routine, Pain (scale 4-6), PACU ondansetron 0 2022- No 4mg 4 mg, Slow Univers (ZOFRAN 05-01 IV Push, ity of (PF)) 23:46: 02:34 PRN, 1 [place] injection 4 57 :20 dose, Medical mg Starting Branch on Trish 05/01/22 at 1746, Until Trish 05/01/22 at 2034, Routine, Nausea and Vomiting (N/V), PACU sodium 2022-0 Yes PRN, Univers chloride 05-01 Starting ity of 0.9 % 23:25: on Trish [place] irrigation 00 05/01/22 at Med ical solution 1725, Branch Until Discontinu ed, Intra-op sodium 2022-0 2022- No PRN, Univers chloride 05-01 Starting ity of 0.9 % 23:25: 02:34 on Trish [place] irrigation 00 :20 05/01/22 at Med ical solution 1725, Branch Until Trish 05/01/22 at 4, Intra-op iohexoL 2022-0 Yes PRN, Univers (OMNIPAQUE 05-01 Starting ity o f 300-50 mL)) 23:23: on [place] injection 00 05/01/22 at [facility] 1723, Branch Until Discontinu ed, Routine, Intra-op iohexoL 2022- No PRN, Univers (OMNIPAQUE 05-01 Starting ity of 300-50 mL)) 23:23: 02:34 on Trish [place] injection 00 :20 05/01/22 at [facility] 1723, Branch Until Trish 05/01/22 at 2034, Routine, Intra-op cefTRIAXone Yes 1000mg 1,000 mg, Univers (ROCEPHIN) 05-01 Slow IV ity of injection 18:00: Push, Q24H [place] 1,000 mg 00 ABX, First Medic al dose on Branch Trish 05/01/22 at 1200, Until Discontinu ed, NICHOLAS<br&gt ;Reason for Anti-Infec tive: Empiric Therapy for Suspected Infection< br>Empiric Therapy Site: Urine
D uration of therapy: 72 hours ketorolac 2022- Yes 15mg 15 mg, Unive rs (TORADOL) 05-01 Slow IV ity of injection 18:00: 17:59 Push, Q6H, [place] 15 mg 00 :00 4 doses, Medical First dose Branch on Trish 05/01/22 at 1200, Last dose on Thu05/02/22 at 0600, Routine NaCl 0.9% 2022- No 1000mL at 999 Uni vers (NS) bolus 05-01 mL/hr, ity of infusion 15:00: 19:15 1,000 mL, [place] 1,000 mL 00 :00 IV Medical Infusion, Branch ONCE, 1 dose, On Trish 05/01/22 at 0900, NICHOLAS ondansetron 2022- No 4mg 4 mg, Slow Univers (ZOFRAN 05-01 IV Push, ity of (PF)) 14:45: 14:31 ONCE, 1 [place] injection 4 00 :00 [facility] at 0845, NICHOLAS ketorolac 2022- No 30mg 30 mg, Unive rs (TORADOL) 04-22 Slow IV ity of injection 00:30: 00:30 Push, [place] 30 mg 00 :00 ONCE, 1 Medical dose, On Branch 04/21/22 at 1830, Routine tamsulosin 3-0 Yes [id number] .4mg Take 1 U nivers 0.4 mg 24 2-13 capsule by ity of hr capsule 00:00: mouth [place] 00 bedtime. Medical Branch gabapentin 3-0 Yes [id number] 300mg Take 1 Univers 300 mg 2-13 capsule by ity of capsule 00:00: mouth 3 [place] 00 (three) Medical times Branch daily as needed for Pain (scale 7-10). ondansetron 2023-0 Yes [id number] 4mg Take 1 Univers 4 mg 2-13 tablet by ity of disintegrat 00:00: mouth [place] ing tablet 00 every 8 Medica l (eight) Branch hours as needed for Nausea and Vomiting (N/V). tamsulosin 2023-0 Yes [id number] .4mg Take 1 U nivers 0.4 mg 24 2-13 capsule by ity of hr capsule 00:00: mouth at [place] 00 bedtime. Medical Branch gabapentin 2022-0 Yes [id number] 300mg Take 1 Univers 300 mg 2-13 capsule by ity of capsule 00:00: mouth 3 [place] 00 (three) Medical times Branch daily as needed for Pain (scale 7-10). ondansetron 3-0 Yes [id number] 4mg Take 1 Univers 4 mg 2-13 tablet by ity of disintegrat 00:00: mouth [place] ing tablet 00 every 8 Medica l (eight) Branch hours as needed for Nausea and Vomiting (N/V). tamsulosin 2023-0 Yes [id number] .4mg Take 1 U nivers 0.4 mg 24 2-13 capsule by ity of hr capsule 00:00: mouth at [place] 00 bedtime. Medical Branch gabapentin 3-0 Yes [id number] 300mg Take 1 Univers 300 mg 2-13 capsule by ity of capsule 00:00: mouth 3 [place] 00 (three) Medical times Branch daily as needed for Pain (scale 7-10). ondansetron 2023-0 Yes [id number] 4mg Take 1 Univers 4 mg 2-13 tablet by ity of disintegrat 00:00: mouth [place] ing tablet 00 every 8 Medica l (eight) Branch hours as needed for Nausea and Vomiting (N/V). tamsulosin 2022-0 Yes [id number] .4mg Take 1 U nivers 0.4 mg 24 2-13 capsule by ity of hr capsule 00:00: mouth at [place] 00 bedtime. Medical Branch gabapentin 2022-0 Yes [id number] 300mg Take 1 Univers 300 mg 2-13 capsule by ity of capsule 00:00: mouth 3 [place] 00 (three) Medical times Branch daily as needed for Pain (scale 7-10). ondansetron 2022-0 Yes [id number] 4mg Take 1 Univers 4 mg 2-13 tablet by ity of disintegrat 00:00: mouth [place] ing tablet 00 every 8 Medica l (eight) Branch hours as needed for Nausea and Vomiting (N/V). iopamidol 2022-0 2023- No [id number] 85mL 85 mL, Univers (ISOVUE 2-04 02-04 Intravenou ity o f 370-500 mL) 21:45: 20:43 s, ONCE, 1 [place] injection 00 :00 dose, On Medica l 85 mL 04/12/22 Branch at 1545, Routine ibuprofen 2022-0 Yes [id number] 600mg Take 1 U nivers 600 mg 2-04 tablet by ity of tablet 00:00: mouth [place] 00 every 8 Medical (eight) Branch hours as needed for Pain (scale 1-3). ibuprofen 2022-0 Yes [id number] 600mg Take 1 U nivers 600 mg 2-04 tablet by ity of tablet 00:00: mouth [place] 00 every 8 Medical (eight) Branch hours as needed for Pain (scale 1-3). ibuprofen 2022-0 Yes [id number] 600mg Take 1 U nivers 600 mg 2-04 tablet by ity of tablet 00:00: mouth [place] 00 every 8 Medical (eight) Branch hours as needed for Pain (scale 1-3). ibuprofen 2022-0 Yes [id number] 600mg Take 1 U nivers 600 mg 2-04 tablet by ity of tablet 00:00: mouth [place] 00 every 8 Medical (eight) Branch hours as needed for Pain (scale 1-3). ibuprofen 2022-0 Yes [id number] 600mg Take 1 U nivers 600 mg 2-04 tablet by ity of tablet 00:00: mouth [place] 00 every 8 Medical (eight) Branch hours as needed for Pain (scale 1-3). ibuprofen Yes [id number] 600mg Take 1 U nivers 600 mg 2-04 tablet by ity of tablet 00:00: mouth [place] 00 every 8 Medical (eight) Branch hours as needed for Pain (scale 1-3). tamsulosin 2022-0 2022- No [id number] .4mg Take 1 Univers 0.4 mg 24 2-04 02-19 capsule by ity of hr capsule 00:00: 05:59 mouth in [place] 00 :00 the Medical morning Branch for 14 days. tamsulosin 2022-0 2022- No [id number] .4mg Take 1 Univers 0.4 mg 24 2-06 08-19 capsule by ity of hr capsule 00:00: 05:59 mouth in [place] 00 :00 the Medical morning Branch for 14 days. phenazopyri 2022-0 2022- No [id number] 200mg Take 1 Univers dine 200 mg 2-04 02-07 tablet by it y of tablet 00:00: 05:59 mouth in [place] 00 :00 the Medical morning Branch and 1 tablet at noon and 1 tablet in the evening. Do all this for 2 days. traMADOL Yes 50mg Take 1 Univers (ULTRAM) 50 8-17 tablet by ity of mg tablet 00:00: mouth [place] 00 every 6 Medical (six) Branch hours as needed for Pain (scale 4-6). docusate Yes 100mg Take 1 Univer s (COLACE) 8-17 capsule by ity o f 100 mg 00:00: mouth [place] capsule 00 daily. Medical Branch Yes 1{tbl} Take 1 Unive rs multivitami 8-17 tablet by ity of n tablet 00:00: mouth [place] 00 daily. Medical Branch traMADOL Yes 50mg Take 1 Univers (ULTRAM) 50 8-17 tablet by ity of mg tablet 00:00: mouth [place] 00 every 6 Medical (six) Branch hours as needed for Pain (scale 4-6). docusate Yes 100mg Take 1 Univer s (COLACE) 8-17 capsule by ity o f 100 mg 00:00: mouth [place] capsule 00 daily. Medical Branch 0 Yes 1{tbl} Take 1 Unive rs multivitami 8-17 tablet by ity of n tablet 00:00: mouth [place] 00 daily. Medical Branch traMADOL 2017-0 Yes 50mg Take 1 Univers (ULTRAM) 50 8-17 tablet by ity of mg tablet 00:00: mouth [place] 00 every 6 Medical (six) Branch hours as needed for Pain (scale 4-6). traMADOL [id number] Yes 50mg Take 1 Univers (ULTRAM) 50 8-17 tablet by ity of mg tablet 00:00: mouth [place] 00 every 6 Medical (six) Branch hours as needed for Pain (scale 4-6). docusate 0 Yes 100mg Take 1 Univer s (COLACE) 8-17 capsule by ity o f 100 mg 00:00: mouth [place] capsule 00 daily. Medical Branch docusate 0 Yes 100mg Take 1 Univer s (COLACE) 8-17 capsule by ity o f 100 mg 00:00: mouth [place] capsule 00 daily. Medical Branch 0 Yes 1{tbl} Take 1 Unive rs multivitami 8-17 tablet by ity of n tablet 00:00: mouth [place] 00 daily. Medical Branch 0 Yes 1{tbl} Take 1 Unive rs multivitami 8-17 tablet by ity of n tablet 00:00: mouth [place] 00 daily. Medical Branch traMADOL 0 Yes 50mg Take 1 Univers (ULTRAM) 50 8-17 tablet by ity of mg tablet 00:00: mouth [place] 00 every 6 Medical (six) Branch hours as needed for Pain (scale 4-6). docusate 0 Yes 100mg Take 1 Univer s (COLACE) 8-17 capsule by ity o f 100 mg 00:00: mouth [place] capsule 00 daily. Medical Branch 0 Yes 1{tbl} Take 1 Unive rs multivitami 8-17 tablet by ity of n tablet 00:00: mouth [place] 00 daily. Medical Branch traMADOL 0 Yes 50mg Take 1 Univers (ULTRAM) 50 8-17 tablet by ity of mg tablet 00:00: mouth [place] 00 every 6 Medical (six) Branch hours as needed for Pain (scale 4-6). docusate 0 Yes 100mg Take 1 Univer s (COLACE) 8-17 capsule by ity o f 100 mg 00:00: mouth [place] capsule 00 daily. Medical Branch 2018-0 Yes 1{tbl} Take 1 Unive rs multivitami 8-17 tablet by ity of n tablet 00:00: mouth [place] 00 daily. Medical Branch traMADOL 2018-0 Yes 50mg Take 1 Univers (ULTRAM) 50 8-17 tablet by ity of mg tablet 00:00: mouth [place] 00 every 6 Medical (six) Branch hours as needed for Pain (scale 4-6). docusate 2018-0 Yes 100mg Take 1 Univer s (COLACE) 8-17 capsule by ity o f 100 mg 00:00: mouth [place] capsule 00 daily. Medical Branch 2018-0 Yes 1{tbl} Take 1 Unive rs multivitami 8-17 tablet by ity of n tablet 00:00: mouth [place] 00 daily. Medical Branch ibuprofen 2017-0 Yes 800mg Take 1 Unive rs 800 mg 8-10 tablet by ity of tablet 00:00: mouth [place] 00 every 8 Medical (eight) Branch hours. traMADOL 50 2017-0 Yes 50mg Take 1 Univ ers mg tablet 8-10 tablet by ity o f 00:00: mouth [place] 00 every 6 Medical (six) Branch hours as needed for Pain (scale 4-6). ibuprofen 2018-0 Yes 800mg Take 1 Unive rs 800 mg 8-10 tablet by ity of tablet 00:00: mouth [place] 00 every 8 Medical (eight) Branch hours. ibuprofen 2018-0 Yes 800mg Take 1 Unive rs 800 mg 8-10 tablet by ity of tablet 00:00: mouth [place] 00 every 8 Medical (eight) Branch hours. traMADOL 50 2018-0 Yes 50mg Take 1 Univ ers mg tablet 8-10 tablet by ity o f 00:00: mouth [place] 00 every 6 Medical (six) Branch hours as needed for Pain (scale 4-6). traMADOL 50 2018-0 Yes 50mg Take 1 Univ ers mg tablet 8-10 tablet by ity o f 00:00: mouth [place] 00 every 6 Medical (six) Branch hours as needed for Pain (scale 4-6). ibuprofen 2018-0 Yes 800mg Take 1 Unive rs 800 mg 8-10 tablet by ity of tablet 00:00: mouth [place] 00 every 8 Medical (eight) Branch hours. traMADOL 50 2018-0 Yes 50mg Take 1 Univ ers mg tablet 8-10 tablet by ity o f 00:00: mouth [place] 00 every 6 Medical (six) Branch hours as needed for Pain (scale 4-6). ibuprofen 2018-0 Yes 800mg Take 1 Unive rs 800 mg 8-10 tablet by ity of tablet 00:00: mouth [place] 00 every 8 Medical (eight) Branch hours. traMADOL 50 2018-0 Yes 50mg Take 1 Univ ers mg tablet 8-10 tablet by ity o f 00:00: mouth [place] 00 every 6 Medical (six) Branch hours as needed for Pain (scale 4-6). ibuprofen 2017-0 Yes 800mg Take 1 Unive rs 800 mg 8-10 tablet by ity of tablet 00:00: mouth [place] 00 every 8 Medical (eight) Branch hours. traMADOL 50 2017-0 Yes 50mg Take 1 Univ ers mg tablet 8-10 tablet by ity o f 00:00: mouth [place] 00 every 6 Medical (six) Branch hours as needed for Pain (scale 4-6). ibuprofen 2018-0 Yes 800mg Take 1 Unive rs 800 mg 8-10 tablet by ity of tablet 00:00: mouth [place] 00 every 8 Medical (eight) Branch hours. traMADOL 50 2017-0 Yes 50mg Take 1 Univ ers mg tablet 8-10 tablet by ity o f 00:00: mouth [place] 00 every 6 Medical (six) Branch hours as needed for Pain (scale 4-6). Vital Signs Vital Name Observation Time Observation Value Comments Source Systolic blood 2022-05-02 00:15:00 141 mm[Hg] Univer sity of pressure [facility] Diastolic blood 2022-05-02 00:15:00 64 mm[facility]Hg[facility] Heart rate 2022-05-02 00:15:00 67 /min [facility] Respiratory rate 2022-05-02 00:15:00 16 /min [facility] Oxygen saturation in 2022-05-02 00:15:00 99 /min [facility] Arterial blood by [facility] Pulse oximetry Branch Body temperature 2022-05-01 23:51:00 36.11 My [facility] Body height 2022-05-01 20:20:00 157.5 cm [facility] Body weight 2022-05-01 20:20:00 84.369 kg [facility] ty [facility] [place] [facility] BMI 2022-05-01 20:20:00 34.02 kg/m2 [facility] ty [facility] [place] [facility] Systolic blood 2022-05-02 00:15:00 141 mm[Hg] Univer sity of pressure [place] [facility] Diastolic blood 2022-05-02 00:15:00 64 mm[Hg] Unive rsity of pressure [place] [facility] Heart rate 2022-05-02 00:15:00 67 /min [facility]i ty [facility] [place] [facility] Respiratory rate 2022-05-02 00:15:00 16 /min Univ ersity of [place] [facility] Oxygen saturation in 2022-05-02 00:15:00 99 /min University of Arterial blood by [place] Fitze[facility] martha Pulse oximetry Branch Body temperature 2022-05-01 23:51:00 36.11 My Univ ersity of [place] [facility] Body height 2022-05-01 20:20:00 157.5 cm [facility] [place] [facility] Body weight 2022-05-01 20:20:00 84.369 kg [facility] [place] [facility] BMI 2022-05-01 20:20:00 34.02 kg/m2 [facility] [place] [facility] Heart rate 2022-05-01 18:41:00 64 /min [facility] [place] [facility] Body temperature 2022-05-01 18:41:00 36.28 My Univ ersity of [place] [facility] Respiratory rate 2022-05-01 18:41:00 17 /min Univ ersity of [place] [facility] Oxygen saturation in 2022-05-01 18:41:00 96 /min University of Arterial blood by [place] Fitze[facility] martha Pulse oximetry Branch Systolic blood 2022-05-01 17:25:00 151 mm[Hg] Univer sity of pressure [place] [facility] Diastolic blood 2022-05-01 17:25:00 88 mm[Hg] Unive rsity of pressure [place] [facility] Body height 2022-05-01 13:42:00 157.5 cm [facility] [place] [facility] Body weight 2022-05-01 13:42:00 74.844 kg [facility] [place] [facility] BMI 2022-05-01 13:42:00 30.18 kg/m2 Universi ty [facility] [place] [facility] Systolic blood 2022-04-22 01:00:00 155 mm[Hg] Univer sity of pressure [place] [facility] Diastolic blood 2022-04-22 01:00:00 97 mm[Hg] Unive rsity of pressure [place] [facility] Heart rate 2022-04-22 01:00:00 78 /min [facility] [place] [facility] Respiratory rate 2022-04-22 01:00:00 15 /min Univ ersity of [place] [facility] Oxygen saturation in 2022-04-22 01:00:00 99 /min University of Arterial blood by [place] Fit[facility] martha Pulse oximetry Branch Body temperature 2022-04-21 22:26:00 37.5 My Univ ersity of [place] [facility] Body height 2022-04-21 22:26:00 157.5 cm [facility] [place] [facility] Body weight 2022-04-21 22:26:00 84.369 kg [facility] [place] [facility] BMI 2022-04-21 22:26:00 34.02 kg/m2 [facility] [place] [facility] Systolic blood 2022-04-12 21:59:00 165 mm[Hg] Univer sity of pressure [place] [facility] Diastolic blood 2022-04-12 21:59:00 83 mm[Hg] Unive rsity of pressure [place] [facility] Heart rate 2022-04-12 21:59:00 72 /min [facility] [place] [facility] Respiratory rate 2022-04-12 21:59:00 18 /min Univ ersity of [place] [facility] Oxygen saturation in 2022-04-12 21:59:00 98 /min University of Arterial blood by [place] Fitzeal martha Pulse oximetry Branch Body temperature 2022-04-12 18:41:00 37.11 My Univ ersity of [place] [facility] Body height 2022-04-12 18:41:00 157.5 cm [facility] [place] [facility] Body weight 2022-04-12 18:41:00 84.369 kg [facility] [place] [facility] BMI 2022-04-12 18:41:00 34.02 kg/m2 [facility] [place] [facility] Systolic blood 2021-08-12 13:23:00 175 mm[Hg] Univer sity of pressure [place] [facility] Diastolic blood 2021-08-12 13:23:00 106 mm[Hg] Unive rsity of pressure [place] [facility] Heart rate 2021-08-12 13:23:00 95 /min [facility] Body temperature 2021-08-12 13:23:00 36.83 [facility] 2021-08-12 13:23:00 18 /min [facility] Body height 2021-08-12 13:23:00 157.5 cm [facility] Body weight 2021-08-12 13:23:00 81.647 kg [facility] BMI 2021-08-12 13:23:00 32.92 kg/m2 [facility] Oxygen saturation in 2021-08-12 13:23:00 100 /min [facility] blood by [facility] Pulse oximetry Branch Procedures Procedure Date / Time Performing Clinician Source Performed [place] TIME OR 2022-05-01 23:56:00 [employer] [facility] [employer] [facility] [employer] [facility] (NON-REPORTABLE) [facility] FL TIME OR 2022-05-01 23:56:00 [employer] [facility] [employer] [facility] [employer] (NON-REPORTABLE) [facility] URETEROSCOPIC STONE 2022-05-01 23:08:00 Nahomi Dominguez [facility] MANIPULATION [facility] CT ABDOMEN PELVIS WO 2022-05-01 14:56:50 Dione Modi [facility] CONTRAST [facility] POCT TEST 2022-05-01 14:41:00 Dione Modi [facility] COMP. METABOLIC PANEL 2022-05-01 14:23:00 Dione Modi [facility] ([id number]) [facility] CBC WITH DIFF 2022-05-01 14:23:00 Keene [facility] URINALYSIS 2022-05-01 14:23:00 [facility] CONSENT/REFUSAL FOR 2022-05-01 13:36:34 Doctor Unassigned, [facility] DIAGNOSIS AND TREATMENT [facility] [place] DAY SURGERY - VICTORY 2022-05-01 06:01:00 Doctor Unassigned, [facility] L[place]ES [facility] [place] COMP. METABOLIC PANEL 2022-04-21 23:02:00 Peg Barnd [facility] ([id number]) [facility] [place] CBC WITH DIFF 2022-04-21 23:02:00 Laurel Brandanne [facility] URINALYSIS 2022-04-21 22:39:00 Cathie [facility] CONSENT/REFUSAL FOR 2022-04-21 22:08:51 Baldomero Saenz [facility] DIAGNOSIS AND TREATMENT [facility] [place] MEDICATION CORRESPONDENCE 2022-04-18 06:01:00 Doctor Edwin [facility] [place] CT ABDOMEN PELVIS W 2022-04-12 20:51:11 [facility] CONTR[facility] Branch COMP. METABOLIC PANEL 2022-04-12 20:27:00 Rasta [facility] [place] Division ([id number]) [facility] [place] CBC WITH DIFF 2022-04-12 20:27:00 Rasta [facility] URINALYSIS 2022-04-12 18:45:00 Singer [facility] POCT TEST 2022-04-12 18:45:00 Singer Dione [facility] CONSENT/REFUSAL FOR 2022-04-12 18:32:08 Baldomero Saenz [facility] DIAGNOSIS AND TREATMENT [facility] XR CHEST 2 VW 2021-08-12 13:55:00 Singer [facility] COMP. METABOLIC PANEL 2021-08-12 13:40:00 Modi [facility] ([id number]) [facility] CBC WITH DIFF 2021-08-12 13:40:00 Singer [facility] NOTICE OF PRIVACY 2021-08-12 13:18:07 Doctor Edwin [facility] PRACTICES [facility] [place] CONSENT/REFUSAL FOR 2021-08-12 13:15:26 Baldomero Saenz [facility] DIAGNOSIS AND TREATMENT [facility] [place] Encounters Start End Encounter Admission Attending Care Care Encounter Source Date/Time Date/Time Type Type Clinicians Facility Department ID 2022-05-01 2022-05-01 Surgery [facility] [id number] Univers 17:00:00 18:57:00 Bilal SPECIALTY 350.1.13.10 ity of CARE 4.2.7.2[address]686 [facility] AT [id number] Nm julianne MALLORY [address] [place] [address] 2022-05-01 2022-05-01 Outpatient U ALBERTORUST SUU [id number] Univers 14:22:00 18:24:00 BILMAGEN ity [facility] 2022-05-01 2022-05-01 Emergency [facility] [id number] Univers 14:22:00 18:24:00 [facility] 350.1.13.10 it y of [place] 4.2.7.2.686 [facility] [id number] [address] ([facility]) 2022-05-01 2022-05-01 Emergency X MODIRUST ERT [id number] Univers 07:43:00 13:29:00 DIONE vaniabret [facility] 2022-05-01 2022-05-01 [facility] [id number] Univers 07:43:00 13:29:00 Dione LEONEL 350.1.13.10 i ty of [place] 4.2.7.2.686 [facility] [id number] [address] 2022-04-21 2022-04-21 Emergency X CATHIERUST ERT [id number] Univers 16:28:00 19:50:00 PEG vaniabret [facility] 2022-04-21 2022-04-21 [facility] [id number] Univers 16:28:00 19:50:00 Peg LEONEL 350.1.13.10 i ty of [place] 4.2.7.2.686 [facility] [id number] [place] [address] [place] 2022-04-18 2022-04-18 Orders Doctor MIKE [id number] Univers 00:00:00 00:00:00 Only Unassigned, SUMAN 350.1.13.10 ity of [place] [facility] 4.2.7.2.686 [facility] [phone] [address] 2022-04-12 2022-04-12 Emergency X RASTARUST ERT [id number] Univers 12:58:00 17:19:00 YURI jacob [facility] 2022-04-12 2022-04-12 Emergency RastaRUST [id number] Univers 12:58:00 17:19:00 Yuri CASTANEDA 350.1.13.10 i ty of [place] 4.2.7.2.686 [facility] [id number] [address] 2021-08-12 2021-08-12 Emergency X RUST ERT [id number] Univers 08:23:00 09:40:00 DIONE jacob [facility] 2021-08-12 2021-08-12 Emergency RUST [id number] Univers 08:23:00 09:40:00 Dione CASTANEDA 350.1.13.10 i ty of [place] 4.2.7.2.686 [facility] [id number] [address] Results Test Description Test Time Test Comments Results Result Comments Source COMP. METABOLIC PANEL ([id number]) 2022-05-01 15:05:34 Test Item Value Reference Range Interpretation Comme nts NA (test code = 6067084317) 139 mmol/L 135-145 K (test code = 5272912139) 4.3 mmol/L 3.5-5.0 CL (test code = 7612230887) 106 mmol/L 98-108 CO2 TOTAL (test code = 27 mmol/L 23-31 6131960408) AGAP (test code = 6549346115) 6 2-16 BUN (test code = 6329346121) 21 mg/dL 7-23 GLUCOSE (test code = 5018247986) 89 mg/dL 70-110 CREATININE (test code = 0.77 mg/dL 0.50-1.04 5071041143) TOTAL BILI (test code = 0.5 mg/dL 0.1-1.4 3287555916) CALCIUM (test code = 2728334335) 9.0 mg/dL 8.6-10.6 T PROTEIN (test code = 7.1 g/dL 6.3-8.2 6226613891) ALBUMIN (test code = 4120050859) 4.2 g/dL 3.5-5.0 ALK PHOS (test code = 4973514977) 52 U/L 34-122 ALTv (test code = 1742-6) 26 U/L 5-35 AST(SGOT) (test code = 25 U/L 13-40 8192439889) eGFR (test code = 8070512460) 80.0 mL/min/1.73m2 TUAN (test code = TUAN) Association of Glomerular Filtration Rate (GFR) and Staging of Kidney Disease* + +--------- + ----+| GFR (mL/min/1.73 m2) ?| With Kidney Damage ?| ?Without Kidney Damage+ +--- + +| ?>90 ?| ?Stage one ?| ? Normal ?+ +-------- + -----+| ?60-89 ?| ?Stage two ?| ? Decreased GFR ? + +--------- + ----+| ?30-59 ?| ?Stage three ?| ? Stage three ? + +--------- + ----+| ?15-29 ?| ?Stage four ? | ? Stage four ?+ +-------- + -----+| ?<15 (or dialysis) ? ?| ?Stage five ? | ? Stage five ?+ +-------- + -----+ *Each stage assumes the associated GFR level has been in effect for at least three months. ?Stages 1 to 5, with or without kidney disease, indicate chronic kidney disease. Notes: Determination of stages one and two (with eGFR >59mL/min/1.73 m2) requires estimation of kidney damage for at least three months as defined by structural or functional abnormalities of the kidney, manifested by either:Pathological abnormalities or Markers of kidney damage (including abnormalities in the composition of the blood or urine or abnormalities in imaging tests). [facility] WITH [id number] 14:51:54 Test Item Value Reference Range Interpretation Comments WBC (test code = 5.97 See_Comment [Automated message] 6690-2) The system [employer] generated this result transmitted ref erence range: 4.30 - 1 1.10 10*3/?L. The re ference range was not u sed to interpret this result as normal/abnor mal. RBC (test code = 4.21 See_Comment [Automated message] 789-8) The system [employer] generated this result transmitted ref erence range: 3.93 - 5 .25 10*6/?L. The re ference range was not u sed to interpret this result as normal/abnor mal. HGB (test code = 12.4 g/dL 11.6-15.0 718-7) HCT (test code = 38.0 % 35.7-45.2 4544-3) MCV (test code = 90.3 fL 80.6-95.5 787-2) MCH (test code = 29.5 pg 25.9-32.8 785-6) MCHC (test code = 32.6 g/dL 31.6-35.1 786-4) RDW-SD (test code 41.8 fL 39.0-49.9 = 95958-9) RDW-CV (test code 12.7 % 12.0-15.5 = 788-0) PLT (test code = 260 See_Comment [Automated message] 777-3) The system [employer] generated this result transmitted ref erence range: 166 - 35 8 10*3/?L. The re ference range was not u sed to interpret this result as normal/abnor mal. MPV (test code = 10.5 fL 9.5-12.9 38388-5) NRBC/100 WBC (test 0.0 See_Comment [Automat ed message] code = 8428493333) The [employer] which generated this result transmitted ref erence range: 0.0 - 10 .0 /100 WBCs. The refer ence range was not u sed to interpret this result as normal/abnor mal. NRBC x10^3 (test See_Comment [Automated message] code = 6200051141) The [employer] m which generated this result transmitted ref erence range: 10*3/?L. The reference range was not used to interpr et this result as normal/abnormal . GRAN MAT (NEUT) % 54.0 % (test code = 770-8) IMM GRAN % (test 0.30 % code = 7761081539) LYMPH % (test code 36.3 % = 736-9) MONO % (test code 6.7 % = 5905-5) EOS % (test code = 2.2 % 713-8) BASO % (test code 0.5 % = 706-2) GRAN MAT 3.22 10*3/uL 1.88-7.09 x10^3(ANC) (test code = 6907148013) IMM GRAN x10^3 0.00-0.06 (test code = 1477849949) LYMPH x10^3 (test 2.17 10*3/uL 1.32-3.29 code = 731-0) MONO x10^3 (test 0.40 10*3/uL 0.33-0.92 code = 742-7) EOS x10^3 (test 0.13 10*3/uL 0.03-0.39 code = 711-2) BASO x10^3 (test 0.03 10*3/uL 0.01-0.07 code = 704-7) [id number] Test Item Value Reference Range Interpretation Comments POCT PREG (test code = 1605) negative On board controls acceptable with Present C Line (test code = 3574) POCT PREG LOT # (test code = HCG [id number]) POCT PREG TEST DATE (test 06/07/2023 code = 3576) Lab Interpretation (test code = Normal 32457-3) [facility]. METABOLIC PANEL ([id number])2022-04-21 23:31:41 Test Item Value Reference Range Interpretation Comments NA (test code = 138 mmol/L 135-145 4726350330) K (test code = 4.0 mmol/L 3.5-5.0 5006641394) CL (test code = 102 mmol/L 98-108 0253872619) CO2 TOTAL (test code 30 mmol/L - = 7980870496) AGAP (test code = 6 2-16 0432824848) BUN (test code = 22 mg/dL 7-23 7444675558) GLUCOSE (test code = 107 mg/dL 70-110 6637425260) CREATININE (test code 0.98 mg/dL 0.50-1.04 = 7141679046) TOTAL BILI (test code 0.4 mg/dL 0.1-1.1 = 0662382286) CALCIUM (test code = 9.1 mg/dL 8.6-10.6 4389636801) T PROTEIN (test code 7.2 g/dL 6.3-8.2 = 9095736126) ALBUMIN (test code = 4.3 g/dL 3.5-5.0 6018551819) ALK PHOS (test code = 69 U/L 34-122 8901324733) ALTv (test code = 24 U/L 5-35 1742-6) AST(SGOT) (test code 25 U/L 13-40 = 8978169437) eGFR (test code = 60.6 mL/min/1.73m2 6922220652) TUAN (test code = TUAN) Association of Glomerular Filtration Rate (GFR) and Staging of Kidney Disease* + + +- +| GFR (mL/min/1.73 m2) ?| With Kidney Damage ?| ?Without Kidney Damage+ ------+ ----+ ------+| ?>90 ?| ?Stage one ?| ? Normal ?+ -+ + -+| ?60-89 ?| ?Stage two ?| ? Decreased GFR ? + + +- +| ?30-59 ?| ?Stage three ?| ? Stage three ? + + +- +| ?15-29 ?| ?Stage four ? | ? Stage four ?+ -+ + -+| ?<15 (or dialysis) ? ?| ?Stage five ? | ? Stage five ?+ -+ + -+ *Each stage assumes the associated GFR level has been in effect for at least three months. ?Stages 1 to 5, with or without kidney disease, indicate chronic kidney disease. Notes: Determination of stages one and two (with eGFR >59mL/min/1.73 m2) requires estimation of kidney damage for at least three months as defined by structural or functional abnormalities of the kidney, manifested by either:Pathological abnormalities or Markers of kidney damage (including abnormalities in the composition of the blood or urine or abnormalities in imaging tests). [facility] WITH [id number] 23:24:19 Test Item Value Reference Range Interpretation Comments WBC (test code = 8.27 See_Comment [Automated message] 4990-2) The system [employer] generated this result transmitted ref erence range: 4.30 - 1 1.10 10*3/?L. The re ference range was not u sed to interpret this result as normal/abnor mal. RBC (test code = 4.18 See_Comment [Automated message] 789-8) The system [employer] generated this result transmitted ref erence range: 3.93 - 5 .25 10*6/?L. The re ference range was not u sed to interpret this result as normal/abnor mal. HGB (test code = 12.3 g/dL 11.6-15.0 718-7) HCT (test code = 37.8 % 35.7-45.2 4544-3) MCV (test code = 90.4 fL 80.6-95.5 787-2) MCH (test code = 29.4 pg 25.9-32.8 785-6) MCHC (test code = 32.5 g/dL 31.6-35.1 786-4) RDW-SD (test code 42.0 fL 39.0-49.9 = 05144-5) RDW-CV (test code 12.7 % 12.0-15.5 = 788-0) PLT (test code = 250 See_Comment [Automated message] 777-3) The system [employer] generated this result transmitted ref erence range: 166 - 35 8 10*3/?L. The re ference range was not u sed to interpret this result as normal/abnor mal. MPV (test code = 10.4 fL 9.5-12.9 51323-3) NRBC/100 WBC (test 0.0 See_Comment [Automat ed message] code = 8439157078) The [employer] which generated this result transmitted ref erence range: 0.0 - 10 .0 /100 WBCs. The refer ence range was not u sed to interpret this result as normal/abnor mal. NRBC x10^3 (test See_Comment [Automated message] code = 2027806915) The [employer] which generated this result transmitted ref erence range: 10*3/?L. The reference range was not used to interpr et this result as normal/abnormal . GRAN MAT (NEUT) % 58.9 % (test code = 770-8) IMM GRAN % (test 0.20 % code = 2583584645) LYMPH % (test code 29.7 % = 736-9) MONO % (test code 8.8 % = 5905-5) EOS % (test code = 1.9 % 713-8) BASO % (test code 0.5 % = 706-2) GRAN MAT 4.86 10*3/uL 1.88-7.09 x10^3(ANC) (test code = 5572885546) IMM GRAN x10^3 0.00-0.06 (test code = 1010950075) LYMPH x10^3 (test 2.46 10*3/uL 1.32-3.29 code = 731-0) MONO x10^3 (test 0.73 10*3/uL 0.33-0.92 code = 742-7) EOS x10^3 (test 0.16 10*3/uL 0.03-0.39 code = 711-2) BASO x10^3 (test 0.04 10*3/uL 0.01-0.07 code = 704-7) [facility]. METABOLIC PANEL ([id number])2022-04-12 21:04:31 Test Item Value Reference Range Interpretation Comments NA (test code = 138 mmol/L 135-145 1878960359) K (test code = 5.1 mmol/L 3.5-5.0 H 6131709896) CL (test code = 106 mmol/L 98-108 4245433207) CO2 TOTAL (test code = 26 mmol/L 23-31 2214546954) AGAP (test code = 6 2-16 3420168224) BUN (test code = 14 mg/dL 7-23 8790717218) GLUCOSE (test code = 139 mg/dL 70-110 H 9086287628) CREATININE (test code = 0.58 mg/dL 0.50-1.04 8183999387) TOTAL BILI (test code = 0.8 mg/dL 0.1-1.9 7939410489) CALCIUM (test code = 9.3 mg/dL 8.6-10.6 4175346346) T PROTEIN (test code = 7.7 g/dL 6.3-8.2 0371133579) ALBUMIN (test code = 4.5 g/dL 3.5-5.0 5039647552) ALK PHOS (test code = 52 U/L 34-122 8361160282) ALTv (test code = 25 U/L 5-35 1742-6) AST(SGOT) (test code = 37 U/L 13-40 1594772781) eGFR (test code = 111.0 mL/min/1.73m2 2633408808) TUAN (test code = TUAN) Association of Glomerular Filtration Rate (GFR) and Staging of Kidney Disease* + --+ --+ ------+| GFR (mL/min/1.73 m2) ?| With Kidney Damage ?| ?Without Kidney Damage+ --------+ --------+ +| ?>90 ?| ?Stage one ?| ? Normal ?+ ---+ ---+ -------+| ?60-89 ?| ?Stage two ?| ? Decreased GFR ? + --+ --+ ------+| ?30-59 ?| ?Stage three ?| ? Stage three ? + --+ --+ ------+| ?15-29 ?| ?Stage four ? | ? Stage four ?+ ---+ ---+ -------+| ?<15 (or dialysis) ? ?| ?Stage five ? | ? Stage five ?+ ---+ ---+ -------+ *Each stage assumes the associated GFR level has been in effect for at least three months. ?Stages 1 to 5, with or without kidney disease, indicate chronic kidney disease. Notes: Determination of stages one and two (with eGFR >59mL/min/1.73 m2) requires estimation of kidney damage for at least three months as defined by structural or functional abnormalities of the kidney, manifested by either:Pathological abnormalities or Markers of kidney damage (including abnormalities in the composition of the blood or urine or abnormalities in imaging tests). Lab Interpretation Abnormal (test code = 89374-1) [facility] WITH [id number] 20:37:28 Test Item Value Reference Range Interpretation Comments WBC (test code = 6.05 See_Comment [Automated message] 9990-2) The system [employer] generated this result transmitted ref erence range: 4.30 - 1 1.10 10*3/?L. The re ference range was not u sed to interpret this result as normal/abnor mal. RBC (test code = 4.53 See_Comment [Automated message] 099-8) The system [employer] generated this result transmitted ref erence range: 3.93 - 5 .25 10*6/?L. The re ference range was not u sed to interpret this result as normal/abnor mal. HGB (test code = 13.4 g/dL 11.6-15.0 718-7) HCT (test code = 40.4 % 35.7-45.2 4544-3) MCV (test code = 89.2 fL 80.6-95.5 787-2) MCH (test code = 29.6 pg 25.9-32.8 785-6) MCHC (test code = 33.2 g/dL 31.6-35.1 786-4) RDW-SD (test code 42.0 fL 39.0-49.9 = 81342-8) RDW-CV (test code 12.8 % 12.0-15.5 = 788-0) PLT (test code = 251 See_Comment [Automated message] 697-3) The system [employer] generated this result transmitted ref erence range: 166 - 35 8 10*3/?L. The re ference range was not u sed to interpret this result as normal/abnor mal. MPV (test code = 10.3 fL 9.5-12.9 27255-3) NRBC/100 WBC (test 0.0 See_Comment [Automat ed message] code = 8517934561) The [employer] which generated this result transmitted ref erence range: 0.0 - 10 .0 /100 WBCs. The refer ence range was not u sed to interpret this result as normal/abnor mal. NRBC x10^3 (test See_Comment [Automated message] code = 3753716952) The syste m which generated this result transmitted ref erence range: 10*3/?L. The reference range was not used to interpr et this result as normal/abnormal . GRAN MAT (NEUT) % 50.6 % (test code = 770-8) IMM GRAN % (test 0.20 % code = 5075332033) LYMPH % (test code 41.0 % = 736-9) MONO % (test code 6.4 % = 5905-5) EOS % (test code = 1.3 % 713-8) BASO % (test code 0.5 % = 706-2) GRAN MAT 3.06 10*3/uL 1.88-7.09 x10^3(ANC) (test code = 5676658483) IMM GRAN x10^3 0.00-0.06 (test code = 0655653317) LYMPH x10^3 (test 2.48 10*3/uL 1.32-3.29 code = 731-0) MONO x10^3 (test 0.39 10*3/uL 0.33-0.92 code = 742-7) EOS x10^3 (test 0.08 10*3/uL 0.03-0.39 code = 711-2) BASO x10^3 (test 0.03 10*3/uL 0.01-0.07 code = 704-7) [id number]00 Test Item Value Reference Range Interpretation Comments POCT PREG (test code = 1605) negative On board controls acceptable with present C Line (test code = 3574) POCT PREG LOT # (test code = 3575) [id number] POCT PREG TEST DATE (test 06/07/2023 code = 3576) Lab Interpretation (test code = Normal 94447-9) [facility] [id number] 14:22:55 Test Item Value Reference Range Interpretation Comments WBC (test code = See_Comment [Automated 4302-2) message] The sy stem which generated this result transmitted reference range : 4.30 - 11.10 10*3/?L. The reference range was not used to interpret this result as normal/abnormal . RBC (test code = See_Comment [Automated 038-8) message] The sy stem which generated this result transmitted reference range : 3.93 - 5.25 10*6/?L. The reference range was not used to interpret this result as normal/abnormal . HGB (test code = 12.5 g/dL 11.6-15.0 718-7) HCT (test code = 39.1 % 35.7-45.2 4544-3) MCV (test code = 86.7 fL 80.6-95.5 787-2) MCH (test code = 27.7 pg 25.9-32.8 785-6) MCHC (test code = 32.0 g/dL 31.6-35.1 786-4) RDW-SD (test code = 49.3 fL 39.0-49.9 84334-8) RDW-CV (test code = 15.6 % 12.0-15.5 H 788-0) PLT (test code = See_Comment [Automated 777-3) message] The sy stem which generated this result transmitted reference range : 166 - 358 10*3/ ?L. The reference r clayton was not used to interpret this result as normal/abnormal . MPV (test code = 10.3 fL 9.5-12.9 20141-4) NRBC/100 WBC (test See_Comment [Automat ed code = 2154634531) message] The system which generated this result transmitted reference range : 0.0 - 10.0 /100 WBCs. The refer ence range was not u sed to interpret th is result as normal/abnormal . NRBC x10^3 (test code <0.01 See_Comment [Auto mated = 5832523782) message] The s ystem which generated this result transmitted reference range : 10*3/?L. The reference range was not used to interpret this result as normal/abnormal . GRAN MAT (NEUT) % 44.7 % (test code = 770-8) IMM GRAN % (test code 0.20 % = 3221750202) LYMPH % (test code = 44.1 % 736-9) MONO % (test code = 8.5 % 5905-5) EOS % (test code = 2.0 % 713-8) BASO % (test code = 0.5 % 706-2) GRAN MAT x10^3(ANC) 2.49 10*3/uL 1.88-7.09 (test code = 5442790783) IMM GRAN x10^3 (test <0.03 0.00-0.06 code = 0436327929) LYMPH x10^3 (test code 2.45 10*3/uL 1.32-3.29 = 731-0) MONO x10^3 (test code 0.47 10*3/uL 0.33-0.92 = 742-7) EOS x10^3 (test code = 0.11 10*3/uL 0.03-0.39 711-2) BASO x10^3 (test code 0.03 10*3/uL 0.01-0.07 = 704-7) Lab Interpretation Abnormal (test code = 88920-2) [facility]. METABOLIC PANEL (80825)2021-08-12 14:22:34 Test Item Value Reference Range Interpretation Comments NA (test code = 141 mmol/L 135-145 7722415554) K (test code = 4.3 mmol/L 3.5-5.0 4137876589) CL (test code = 106 mmol/L 98-108 7107432298) CO2 TOTAL (test code 26 mmol/L 23-31 = 7575641439) AGAP (test code = 2-16 3700528224) BUN (test code = 11 mg/dL 7-23 2266745761) GLUCOSE (test code = 98 mg/dL 70-110 3649215567) CREATININE (test code 0.62 mg/dL 0.50-1.04 = 1943762199) TOTAL BILI (test code 0.3 mg/dL 0.1-1.1 = 1978201225) CALCIUM (test code = 9.5 mg/dL 8.6-10.6 2246412267) T PROTEIN (test code 6.9 g/dL 6.3-8.2 = 7638979369) ALBUMIN (test code = 4.1 g/dL 3.5-5.0 6083102655) ALK PHOS (test code = 55 U/L 34-122 8400722818) ALTv (test code = 18 U/L 5-35 1742-6) AST(SGOT) (test code 22 U/L 13-40 = 3001146282) eGFR (test code = mL/min/1.73m2 9469524282) TUAN (test code = TUAN) Association of Glomerular Filtration Rate (GFR) and Staging of Kidney Disease* + + +- +| GFR (mL/min/1.73 m2) ?| With Kidney Damage ?| ?Without Kidney Damage+ ------+ ----+ ------+| ?>90 ?| ?Stage one ?| ? Normal ?+ -+ + -+| ?60-89 ?| ?Stage two ?| ? Decreased GFR ? + + +- +| ?30-59 ?| ?Stage three ?| ? Stage three ? + + +- +| ?15-29 ?| ?Stage four ? | ? Stage four ?+ -+ + -+| ?<15 (or dialysis) ? ?| ?Stage five ? | ? Stage five ?+ -+ + -+ *Each stage assumes the associated GFR level has been in effect for at least three months. ?Stages 1 to 5, with or without kidney disease, indicate chronic kidney disease. Notes: Determination of stages one and two (with eGFR >59mL/min/1.73 m2) requires estimation of kidney damage for at least three months as defined by structural or functional abnormalities of the kidney, manifested by either:Pathological abnormalities or Markers of kidney damage (including abnormalities in the composition of the blood or urine or abnormalities in imaging tests). [facility]"
--- NOTE | 2022-07-28 11:42 | EDPHYS ---
Physician Documentation [facility] Name: Telma Sinclair Age: 47 yrs Sex: Female : 1975 Arrival Date: 07/28/2022 Time: 10:38 Bed 11 Private MD: ED Physician Mellissa Oquendo HPI: 07/28 12:43 This 47 yrs old Female presents to ER via Ambulatory with complaints of Sore Throat, kb Fever, Headache. 12:43 The patient presents with sore throat. The patient describes throat pain as constant. kb Onset: The symptoms/episode began/occurred yesterday. Severity of symptoms: At their worst the symptoms were moderate, in the emergency department the symptoms are unchanged. Modifying factors: The symptoms are alleviated by nothing, the symptoms are aggravated by swallowing, Patient's oral intake status: good The patient has had contact with sick. Associated signs and symptoms: Pertinent positives: chills, cough, earache, fever, flu-like symptoms, malaise, rhinorrhea, Sore throat. The patient has not experienced similar symptoms in the past. The patient has not recently seen a physician. Pt reports sore throat, ear pain, fever, malaise, cough, congestion since yesterday. States there are 4 others in the household that have similar symptoms. Historical: - Allergies: 10:59 No Known Allergies; ph - PMHx: 10:59 uterine fibroids; ph - PSHx: 10:59 section; ph - Immunization history:: Adult Immunizations unknown. - Social history:: Smoking status: Patient denies any tobacco usage or history of. ROS: 12:42 Abdomen/GI: Negative for abdominal pain, nausea, vomiting, diarrhea, and constipation. kb 12:42 Constitutional: Positive for fever, malaise. 12:42 ENT: Positive for rhinorrhea, sinus congestion, sore throat. 12:42 Respiratory: Positive for cough, Negative for dyspnea on exertion, hemoptysis, orthopnea, pleurisy, shortness of breath, sputum production, wheezing. 12:42 All other systems are negative. Exam: 12:44 Constitutional: This is a well developed, well nourished patient who is awake, alert, kb and in no acute distress. Head/Face: Normocephalic, atraumatic. Cardiovascular: Regular rate and rhythm with a normal S1 and S2. No gallops, murmurs, or rubs. No pulse deficits. Respiratory: Respirations even and unlabored. No increased work of breathing. Talking in full sentences Abdomen/GI: Soft, non-tender. No distention Skin: Warm, dry with normal turgor. Normal color. MS/ Extremity: Pulses equal, no cyanosis. Neurovascular intact. Full, normal range of motion. Neuro: Awake and alert, GCS 15, oriented to person, place, time, and situation. Moves all extremities. Normal gait. 12:44 ENT: External ear(s): are unremarkable, Ear canal(s): are normal, TM's: are normal, Nose: is normal, Mouth: is normal, Posterior pharynx: Airway: normal, no evidence of obstruction, Tonsils: with erythema, Uvula: normal, midline, swelling, is not appreciated, erythema, that is moderate, exudate, is not appreciated. Vital Signs: 10:55 BP 138 / 97; Pulse 74; Resp 18; Temp 97.7; Pulse Ox 98% on R/A; Weight 83.01 kg; Height ph 5 ft. 2 in. ; 12:16 BP 128 / 82; Pulse 72; Resp 18; Pulse Ox 98% ; ko1 10:55 Body Mass Index 33.47 (83.01 kg, 157.48 cm) ph MDM: 10:43 Patient medically screened. kb 12:45 Differential diagnosis: viral syndrome uri, covid, flu, strep. Data reviewed: vital kb signs, nurses notes. I considered the following discharge prescriptions or medication management in the emergency department I discussed and recommended Over The Counter medications, Antibiotics: At this time antibiotics are not recommended. Counseling: I had a detailed discussion with the patient and/or guardian regarding: the historical points, exam findings, and any diagnostic results supporting the discharge/admit diagnosis, lab results, the need for outpatient follow up, a family practitioner, to return to the emergency department if symptoms worsen or persist or if there are any questions or concerns that arise at home. ED course: Pt wants antibiotics to relieve symptoms. Educated on likely viral etiology and there is no obvious bacterial infection at this time. Throat swab will be sent for culture and pt will be called with antibiotic prescription if needed. Educated on OTC symptomatic treatment. Verbal understanding receive.d . 07/28 10:48 Order name: Flu; Complete Time: 11:40 kb 07/28 10:48 Order name: Strep kb 07/28 11:32 Order name: Throat Culture EDMS Administered Medications: No medications were administered Disposition Summary: 07/28/22 11:41 Discharge Ordered Location: Home kb Condition: Stable kb Diagnosis - Acute pharyngitis, unspecified kb Followup: kb - With: Emergency Department - When: As needed - Reason: Worsening of condition Followup: kb - With: Private Physician - When: 2 - 3 days - Reason: Recheck today's complaints, Continuance of care, Re-evaluation by your physician Discharge Instructions: - Discharge Summary Sheet kb - Pharyngitis, [id number] kb Forms: - Medication Reconciliation Form kb - Thank You Letter kb - Antibiotic Education kb - Prescription Opioid Use kb - Work release form aa5 Signatures: Dispatcher [employer] EDSuzanne Whiting FNP-C FNP-Chelsey Amaral RN RN Anna Riddle RN RN ko1
--- NOTE | 2022-07-28 11:42 | ER ---
Nurse's Notes [facility] Name: Telma Sinclair Age: 47 yrs Sex: Female : 1975 Arrival Date: 07/28/2022 Time: 10:38 Bed 11 Private MD: Diagnosis: Acute pharyngitis, unspecified Presentation: 07/28 10:51 Chief complaint: Chief complaint: Patient states: Sore throat, fever TMAX 101.2, N/V, ph and sinus congestion since yesterday. 10:55 Coronavirus screen: Vaccine status: Patient reports receiving the 2nd dose of the covid ph vaccine. Ebola Screen: No symptoms or risks identified at this time. Initial Sepsis Screen: Does the patient meet any 2 criteria? No. Patient's initial sepsis screen is negative. Does the patient have a suspected source of infection? No. Patient's initial sepsis screen is negative. Risk Assessment: Do you want to hurt yourself or someone else? Patient reports no desire to harm self or others. Onset of symptoms was July 28, 2022. 10:55 Method Of Arrival: Ambulatory ph 10:55 Acuity: ELEAZAR 4 ph Triage Assessment: 12:16 General: Appears in no apparent distress. Behavior is calm, cooperative, appropriate ko1 for age. Historical: - Allergies: 10:59 No Known Allergies; ph - PMHx: 10:59 uterine fibroids; ph - PSHx: 10:59 section; ph - Immunization history:: Adult Immunizations unknown. - Social history:: Smoking status: Patient denies any tobacco usage or history of. Screenin:14 [facility] ED Fall Risk Assessment (Adult) History of falling in the last 3 months, ko1 including since admission No falls in past 3 months (0 pts) Confusion or Disorientation No (0 pts) Intoxicated or Sedated No (0 pts) Impaired Gait No (0 pts) Mobility Assist Device Used No (0 pt) Altered Elimination No (0 pt) Score/Fall Risk Level 0 - 2 = Low Risk Oriented to surroundings, Maintained a safe environment, Educated pt \T\ family on fall prevention, incl call for assistance when getting out of bed, Assessed \T\ reinforced patient's understanding of fall precautions, Provided non-skid footwear, Hourly rounding (assess needs \T\ fall precautionary measures) done, Used ambulatory aids as needed (educated on \T\ assisted with), Used gait belt as appropriate. Abuse screen: Denies threats or abuse. Denies injuries from another. Nutritional screening: No deficits noted. Tuberculosis screening: No symptoms or risk factors identified. Assessment: 12:14 Pain: Complains of pain in sore throat. Neuro: No deficits noted. Cardiovascular: No ko1 deficits noted. Respiratory: Airway is patent Respiratory effort is even, unlabored, Breath sounds are clear. GI: No deficits noted. : No deficits noted. EENT: Throat is pink. Derm: No deficits noted. Musculoskeletal: No deficits noted. Vital Signs: 10:55 BP 138 / 97; Pulse 74; Resp 18; Temp 97.7; Pulse Ox 98% on R/A; Weight 83.01 kg; Height ph 5 ft. 2 in. ; 12:16 BP 128 / 82; Pulse 72; Resp 18; Pulse Ox 98% ; ko1 10:55 Body Mass Index 33.47 (83.01 kg, 157.48 cm) ph ED Course: 10:40 Patient arrived in ED. am2 10:43 Suzanne Ballard FNP-C [facility]. kb 10:43 Mellissa Oquendo MD is Attending Physician. kb 10:55 Chelsey Mathias, YUKI is Primary Nurse. ph 10:59 Triage completed. ph 11:00 Arm band placed on Patient placed in an exam room, on a stretcher. ph 12:14 Patient has correct armband on for positive identification. Bed in low position. Call ko1 light in reach. Side rails up X 1. Pulse ox on. NIBP on. 12:14 No provider procedures requiring assistance completed. Patient did not have IV access ko1 during this emergency room visit. Administered Medications: No medications were administered Medication: 12:14 VIS not applicable for this client. ko1 Outcome: 11:41 Discharge ordered by . kb 12:14 Discharged to home ambulatory. ko1 12:14 Condition: stable 12:14 Discharge instructions given to patient, Instructed on discharge instructions, Demonstrated understanding of instructions, follow-up care. 12:22 Patient left the ED. aa5 Signatures: Suzanne Ballard FNP-C FNP-Chery Malcolm RN RN aa5 Chelsey Mathias RN RN [facility]linKat castroanda am Anna Ross RN RN ko1 Corrections: (The following items were deleted from the chart) 10:59 10:51 Chief complaint: ph ph
[2022-07-28 12:27] VITALS: TEMP 97.7; O2SAT 98
[2022-07-28 12:29] VITALS: BP 128/82
== END 2022-07-28 12:22 | disposition home or self-care (01) ==
LOC: ER 10:38
DX: J02.9 Acute pharyngitis, unspecified (principal)
CPT/HCPCS: 87070; 87081; 87804